=== PATIENT | male | born 1945 | race Caucasian/White ===

== ENCOUNTER → 2019-01-29 | Outpatient (CLI) | payer MEDICARE, OTHER ==
--- NOTE | 2019-01-29 14:28 | Diagnostic Imaging Report ---
INDICATION: Hematospermia and hypertension. FINDINGS: The right testicle measures 3.6 x 2.1 x 2.2 cm and the left testicle measures 4.6 x 1.8 x 2.5 cm. Testes demonstrate fairly homogeneous echotexture. There are small cysts noted along the periphery of the each testicle. Cyst on the right is approximately 9 mm x 8 mm. Cyst on the left is approximately 8 mm x 7 mm. It is uncertain if these represent true testicular cyst versus tunica cysts. There is blood flow to both testes. Note is made of a small left varicocele. No hydrocele is seen. The epididymides are unremarkable. IMPRESSION: 1. 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 No solid testicular mass or vascular compromise is seen. Note is made of a small left varicocele. Dictated by: Dictated on workstation # [id number]
== END ==
LOC: RAD 12:51
PROVIDERS: ATTEND Pediatrics
DX: I10 Essential (primary) hypertension (principal); R36.1 Hematospermia
CPT/HCPCS: 76870

== ENCOUNTER 2019-02-12 09:04 | Emergency (ER) | payer MEDICARE, OTHER ==
[~2019-02-12] VITALS: Ht 172.7 cm; Wt 104.3 kg
[2019-02-12] MEDS ORDERED: NS IV 1000 ML 1,000 ML IV SCH (09:30)
[2019-02-12] MEDS ORDERED: DILTIAZEM INJECTION 125 MG in NS (IVPB) 100 ML IV SCH (09:30)
[2019-02-12 09:31] VITALS: BP_SYST 112; BP_SYST 120; BP_SYST 80; BP_DIAS 47; BP_DIAS 75; BP_DIAS 79
[2019-02-12] MEDS ORDERED: DILTIAZEM 125 MG/25 ML IV (CARDIZEM) IV ONE (09:36)
[2019-02-12 09:38] LABS: BASOPHILS % (AUTO) 1 % (0-10); EOSINOPHILS # (AUTO) 0.1 10^3/uL (0.0-0.3); EOSINOPHILS % (AUTO) 2 % (0-10); HEMATOCRIT 39 % (40-54); LYMPHOCYTES # (AUTO) 1.8 X 10^3 (1.0-4.0); LYMPHOCYTES % (AUTO) 36 % (12-44); MEAN CORPUSCULAR HEMOGLOBIN 30 PG (25-34); MEAN CORPUSCULAR HGB CONC 33 G/DL (32-36); MEAN CORPUSCULAR VOLUME 92 FL (80-99); MEAN PLATELET VOLUME 9.9 FL (7.4-10.4); MONOCYTES # (AUTO) 0.3 X 10^3 (0.0-1.0); MONOCYTES % (AUTO) 6 % (0-12); NEUTROPHILS # (AUTO) 2.7 X 10^3 (1.8-7.8); NEUTROPHILS % (AUTO) 55 % (42-75); PLATELET COUNT 144 10^3/uL (130-400); RED CELL DISTRIBUTION WIDTH 12.4 % (10.0-14.5); WHITE BLOOD COUNT 4.9 10^3/uL (4.3-11.0)
[2019-02-12 09:57] LABS: POTASSIUM 3.8 MMOL/L (3.6-5.0)
[2019-02-12 09:58] LABS: ALBUMIN 3.6 GM/DL (3.2-4.5); BILIRUBIN,TOTAL 1.3 MG/DL (0.1-1.0); CALCIUM 8.8 MG/DL (8.5-10.1); CREATININE SERUM 1.32 MG/DL (0.60-1.30); TOTAL PROTEIN 6.4 GM/DL (6.4-8.2)
--- NOTE | 2019-02-12 09:59 | Diagnostic Imaging Report ---
INDICATION: Dizziness, increased heart rate. COMPARISON: None available. TECHNIQUE: Single frontal radiograph of the chest dated 02/12/2019. FINDINGS: A pacer device is present with a battery pack overlying left chest. The cardiac silhouette is mildly enlarged. No significant pulmonary vascular congestion. The lungs are clear of focal pulmonary opacity. No pleural effusion. No pneumothorax. No acute osseous abnormality. IMPRESSION: Mild cardiomegaly without overt congestive heart failure or additional superimposed acute cardiopulmonary abnormality. Dictated by: Dictated on workstation # [id number]
--- NOTE | 2019-02-12 10:03 | NUR ---
Note pt converted from A Fib RVR to paced rhythm with rate control.
--- NOTE | 2019-02-12 10:14 | ED Chest Pain ---
General Chief Complaint: Cardiac/General Problems Stated Complaint: DIZZY Nursing Triage Note: Pt presents to ED reporting very dizzy this morning since 0700. Pt has a pacemaker and heart hx. Pt reports feeling a fluttering in heart. Hx of A FIb and takes Eliquis. Nursing Sepsis Screen: No Definite Risk Source: patient Exam Limitations: no limitations History of Present Illness Date Seen by Provider: Feb 12, 2019 Time Seen by Provider: 09:30 Initial Comments Patient is a 74-year-old male with history of paroxysmal atrial fibrillation, CAD with recent stent AICD placement at [facility] presents with dizziness and palpitations this morning. Patient reports dizziness or lightheadedness upon standing. Initial EKG shows A. fib with RVR with a rate of 121. Patient denies chest pain, shortness of breath, nausea vomiting or sweats. Denies missed medications. Does report some residual swelling in both legs for the past 2 weeks. He is currently anticoagulated on AHLQUIST. Denies any recent change to his exercise tolerance. No recent illnesses. No other acute symptoms or complaints. Patient lives by himself and is accompanied by his sister at bedside. Timing/Duration: 1-3 hours Severity/Quality: moderate Activities at Onset: none Prior CP/Workup: cardiac cath Associated Symptoms: denies symptoms Allergies and Home Medications Allergies Coded Allergies: hydrocodone (Unverified Adverse Reaction, Intermediate, SOA, wheezing, swelling, 02/12/19) midazolam (Unverified Adverse Reaction, Intermediate, Delirium, Hallucination, 02/12/19) Patient Home Medication List Home Medication List Reviewed: Yes Review of Systems Review of Systems Constitutional: see HPI, dizziness Respiratory: See HPI Cardiovascular: See HPI Gastrointestinal: See HPI Genitourinary: See HPI Musculoskeletal: see HPI Skin: see HPI Psychiatric/Neurological: See HPI Endocrine: See HPI Hematologic/Lymphatic: See HPI Past Bfzbcds-Ysijdc-Pjlfos Hx Patient Social History Alcohol Use: Denies Use Recreational Drug Use: No Smoking Status: Former Smoker Former Smoker, Quit: Oct 16, 2010 Recent Foreign Travel: No Contact w/Someone Who Travel: No Recent Infectious Disease Expo: No Recent Hopitalizations: No Physical Abuse: No Sexual Abuse: No Mistreated: No Fear: No Immunizations Up To Date Date of Pneumonia Vaccine: February 13, 2018 Date of Influenza Vaccine: Jul 16, 2018 Seasonal Allergies Seasonal Allergies: No Past Medical History Surgeries: Yes (Hernia repair ', '; Colonoscopy, PTCA) Coronary Stent, Pacemaker Respiratory: No Cardiac: Yes (Diastolic CHF; chronic, Pacemaker/stent 2018) Atrial Fibrillation, Coronary Artery Disease, Hypertension Neurological: No Genitourinary: Yes Benign Prostatic Hyperpl Gastrointestinal: Yes Gastrointestinal Bleed Musculoskeletal: Yes (Osteoarthritis knee) HEENT: No Cancer: No Psychosocial: No Integumentary: No Blood Disorders: No Physical Exam Vital Signs Vital Signs - First Documented 02/12/19 09:07 Temp 97.4 Pulse 85 Resp 20 B/P (MAP) 128/65 (86) Pulse Ox 97 O2 Delivery Room Air Capillary Refill : Less Than 3 Seconds Height, Weight, BMI Height: 5'8.00" Weight: 230lbs. oz. 104.932060gn; BMI Method:Stated General Appearance: No Apparent Distress, WD/WN HEENT: PERRL/EOMI, TMs Normal, Normal ENT Inspection, Pharynx Normal Neck: Full Range of Motion, Normal Inspection Respiratory: Chest Non Tender, Lungs Clear, Normal Breath Sounds Cardiovascular: Irregularly Irregular Gastrointestinal: Normal Bowel Sounds, Soft Neurologic/Psychiatric: Alert, Oriented x3 Skin: Normal Color, Warm/Dry Focused Exam Sepsis Stage: Ruled Out Progress/Results/Core Measures Results/Orders Lab Results Laboratory Tests Test 02/12/19 09:20 02/12/19 11:10 Range/Units White Blood Count 4.9 4.3-11.0 10^3/uL Red Blood Count 4.29 L 4.35-5.85 10^6/uL Hemoglobin 13.0 L 13.3-17.7 G/DL Hematocrit 39 L 40-54 % Mean Corpuscular Volume 92 80-99 FL Mean Corpuscular Hemoglobin 30 25-34 PG Mean Corpuscular Hemoglobin Concent 33 32-36 G/DL Red Cell Distribution Width 12.4 10.0-14.5 % Platelet Count 144 130-400 10^3/uL Mean Platelet Volume 9.9 7.4-10.4 FL Neutrophils (%) (Auto) 55 42-75 % Lymphocytes (%) (Auto) 36 12-44 % Monocytes (%) (Auto) 6 0-12 % Eosinophils (%) (Auto) 2 0-10 % Basophils (%) (Auto) 1 0-10 % Neutrophils # (Auto) 2.7 1.8-7.8 X 10^3 Lymphocytes # (Auto) 1.8 1.0-4.0 X 10^3 Monocytes # (Auto) 0.3 0.0-1.0 X 10^3 Eosinophils # (Auto) 0.1 0.0-0.3 10^3/uL Basophils # (Auto) 0.0 0.0-0.1 10^3/uL Sodium Level 145 135-145 MMOL/L Potassium Level 3.8 3.6-5.0 MMOL/L Chloride Level 107 98-107 MMOL/L Carbon Dioxide Level 25 21-32 MMOL/L Anion Gap 13 5-14 MMOL/L Blood Urea Nitrogen 12 7-18 MG/DL Creatinine 1.32 H 0.60-1.30 MG/DL Estimat Glomerular Filtration Rate 53 BUN/Creatinine Ratio 9 Glucose Level 185 H 70-105 MG/DL Calcium Level 8.8 8.5-10.1 MG/DL Corrected Calcium 9.1 8.5-10.1 MG/DL Total Bilirubin 1.3 H 0.1-1.0 MG/DL Aspartate Amino Transf (AST/SGOT) 20 5-34 U/L Alanine Aminotransferase (ALT/SGPT) 15 0-55 U/L Alkaline Phosphatase 105 40-136 U/L Troponin T 28 H 24 H <=15 NG/L Pro-B-Type Natriuretic Peptide 1133.0 H <75.0 PG/ML Total Protein 6.4 6.4-8.2 GM/DL Albumin 3.6 3.2-4.5 GM/DL My Orders Orders - ARGENIS MEDRANO DO Cbc With Automated Diff (02/12/19 09:24) Comprehensive Metabolic Panel (02/12/19 09:24) Ekg Tracing (02/12/19 09:24) Chest 1 View Ap/Pa Only (02/12/19 09:24) Troponin T (02/12/19 09:24) Probnp Fs (02/12/19 09:24) Ns (Ivpb) (Sodium C... W/Diltiazem Injec (02/12/19 09:30) Ns Iv 1000 Ml (Sodium Chloride 0.9%) (02/12/19 09:30) Diltiazem Iv For Drip (Cardizem Iv For D (02/12/19 09:36) Furosemide Injection (Lasix Injection) (02/12/19 10:30) Troponin T (02/12/19 10:51) Troponin T (02/12/19 11:33) Medications Given in ED Current Medications Medications Dose Ordered Sig/Frantz Route Start Time Stop Time Status Last Admin Dose Admin Furosemide 40 mg ONCE ONCE IVP 02/12/19 10:30 02/12/19 10:51 DC 02/12/19 11:07 40 MG Vital Signs/I&O 02/12/19 02/12/19 02/12/19 09:07 09:31 09:54 Temp 97.4 Pulse 85 79 139 92 100 Resp 20 18 B/P (MAP) 128/65 (86) 112/79 (90) 104/70 120/75 (90) 80/47 (58) Pulse Ox 97 93 O2 Delivery Room Air Blood Pressure Mean: 81 Initial ECG Rhythm: A Fib/Flutter EKG : ECG Impression: Atrial Fibrillation w/RVR Departure Communication (Admissions) Patient converted from A. fib with RVR to atrial paced rhythm with addition of IV fluids and Cardizem drip. Patient states he feels much better. Denies chest pain. Repeat EKG, does not show acute ST elevation. T-wave inversions in lateral leads of unknown significance. Initial troponin is borderline. Repeat and does not show increased elevation. Cardizem discontinued. Vital signs remain stable. Patient walks a steady gait does not feel symptomatic. Will discharge for the ED with instructions to contact [facility] for further recommendations and follow-up. Return precautions reviewed. Impression Primary Impression: Atrial fibrillation with RVR Additional Impression: Orthostatic hypotension Disposition: 01 HOME, SELF-CARE Condition: Stable Departure-Patient Inst. Referrals: ANALI OLIVAS MD (PCP/Family) Primary Care Physician Patient Instructions: Orthostatic Hypotension (DC), Atrial Fibrillation Add. Discharge Instructions: Please your continue home medications, contact your [facility] office and notified them of the emergency department visit. Confirm your next cardiology appointment date and determine whether you should be seen before then. Return to the ED if new or worsening symptoms. All discharge instructions reviewed with patient and/or family. Voiced understanding. ARGENIS MEDRANO DO Feb 12, 2019 10:13
[2019-02-12] MEDS ORDERED: FUROSEMIDE 40 MG/4 ML INJ (LASIX) IVP ONE (10:30)
[2019-02-12 11:51] VITALS: BP_SYST 103; BP_SYST 117; BP_SYST 136; BP_DIAS 61; BP_DIAS 75; BP_DIAS 76
--- NOTE | 2019-02-12 12:00 | NUR ---
Walked in ED 100 ft after the orthostatics completed. HR up to 96 appearing paced then at rest resumed rate to 68 paced. Post ambulation NIBP 140/74.
[2019-02-12] MEDS ORDERED: TERA5CAP3 (12:07)
[2019-02-12] MEDS ORDERED: APIX5TAB (12:07)
[2019-02-12] MEDS ORDERED: METO-333 (12:07)
[2019-02-12] MEDS ORDERED: FINA5TAB6 (12:07)
[2019-02-12] MEDS ORDERED: LISI-556 (12:07)
[2019-02-12] MEDS ORDERED: PANT40TA3 (12:07)
[2019-02-12] MEDS ORDERED: ATOR80TA76 (12:07)
[2019-02-12] MEDS ORDERED: CLOP75TA28 (12:07)
[2019-02-12 12:20] VITALS: BP 140/80
--- NOTE | 2019-02-12 12:20 | NUR ---
Pt discharged to home after improvement of heart rate controlled, no dizziness reported, and pt ambulation without sx. Discharge NIBP 140/80, pulse 68 paced rhythm.
== END 2019-02-12 12:20 | disposition home or self-care (01) ==
LOC: EDUNIT# 09:04 → ER FS 09:05
DX: I48.91 Unspecified atrial fibrillation (principal); I95.1 Orthostatic hypotension; I10 Essential (primary) hypertension; I25.10 Atherosclerotic heart disease of native coronary artery without angina pectoris; Z87.891 Personal history of nicotine dependence; Z87.448 Personal history of other diseases of urinary system; Z87.19 Personal history of other diseases of the digestive system; Z95.810 Presence of automatic (implantable) cardiac defibrillator; Z88.5 Allergy status to narcotic agent; Z88.8 Allergy status to other drugs, medicaments and biological substances; Z95.5 Presence of coronary angioplasty implant and graft; Z98.890 Other specified postprocedural states
CPT/HCPCS: 36415; 71045; 80053; 83880; 84484; 85025; 96361; 96365; 96366; 96375

== ENCOUNTER 2019-02-22 18:19 | Emergency (ER) | payer MEDICARE, OTHER ==
[~2019-02-22] VITALS: Ht 172.7 cm; Wt 104.3 kg
[~2019-02-22 18:19] MED LIST: APIX5TAB; ATOR80TA76; CLOP75TA28; FINA5TAB6; LISI-556; METO-333; PANT40TA3; TERA5CAP3
[2019-02-22 18:51] LABS: BASOPHILS % (AUTO) 0 % (0-10); EOSINOPHILS % (AUTO) 2 % (0-10); HEMATOCRIT 42 % (40-54); HEMOGLOBIN 14.2 G/DL (13.3-17.7); LYMPHOCYTES % (AUTO) 37 % (12-44); MEAN CORPUSCULAR HEMOGLOBIN 31 PG (25-34); MEAN CORPUSCULAR HGB CONC 34 G/DL (32-36); MEAN CORPUSCULAR VOLUME 91 FL (80-99); MEAN PLATELET VOLUME 9.9 FL (7.4-10.4); MONOCYTES % (AUTO) 8 % (0-12); NEUTROPHILS % (AUTO) 53 % (42-75); PLATELET COUNT 160 10^3/uL (130-400); RED CELL DISTRIBUTION WIDTH 12.3 % (10.0-14.5); WHITE BLOOD COUNT 6.8 10^3/uL (4.3-11.0)
[2019-02-22 18:52] LABS: EOSINOPHILS # (AUTO) 0.1 10^3/uL (0.0-0.3); LYMPHOCYTES # (AUTO) 2.5 X 10^3 (1.0-4.0); MONOCYTES # (AUTO) 0.5 X 10^3 (0.0-1.0); NEUTROPHILS # (AUTO) 3.6 X 10^3 (1.8-7.8)
--- NOTE | 2019-02-22 18:58 | Diagnostic Imaging Report ---
INDICATION: Pacemaker, dizziness. COMPARISON: 02/12/2019 FINDINGS: Single view of the chest demonstrates stable cardiac enlargement. Lungs are clear. There is no pneumothorax or effusion. Osseous structures are stable. Pacemaker is unchanged. IMPRESSION: Stable cardiac enlargement without pulmonary edema or acute infiltrate. Dictated by: Dictated on workstation # [id number]
[2019-02-22 19:17] LABS: CREATININE SERUM 2.09 MG/DL (0.60-1.30); POTASSIUM 4.3 MMOL/L (3.6-5.0)
[2019-02-22 19:18] LABS: ALBUMIN 4.5 GM/DL (3.2-4.5); BILIRUBIN,TOTAL 1.4 MG/DL (0.1-1.0); TOTAL PROTEIN 7.2 GM/DL (6.4-8.2)
[2019-02-22] MEDS ORDERED: NS IV 1000 ML 500 ML IV SCH (20:00)
--- NOTE | 2019-02-22 20:04 | ED Syncope ---
General Chief Complaint: Dizziness/Syncope Stated Complaint: DIZZY, LIGHT HEADED Nursing Triage Note: Has been lightheaded for 30 minutes, has been working outside today. Also had a dull ache in chest that is gone now. Was recently in ED for afib and had a AL last October. Source of Information: Patient History of Present Illness Date Seen by Provider: February 22, 2019 Time Seen by Provider: 19:00 Initial Comments Patient is a 74-year-old male history CAD, stent placement 3 months ago, intermittent atrial fibrillation and pacemaker placement placed 2 months ago presents with dizziness after upon standing lost less than 5 minutes starting 30 minutes prior to arrival. Patient states he spent part of the evening on his riding lawnmower mowing his lawn. He then went indoors cleaned up, sat down and felt dizzy upon standing. Dizziness is positional and resolved with rest. Denies chest pain palpitations, shortness of breath. Dizziness has since improved. Patient's had prior to dizzy episodes and was seen in the emergency department approximately 10 days ago for the same by this provider. No other acute symptoms or complaints. Precipitating Factors: Standing Loss of Consciousness: No Loss of Consciousness Current Symptoms: Back to Normal Allergies and Home Medications Allergies Coded Allergies: hydrocodone (Unverified Adverse Reaction, Intermediate, SOA, wheezing, swelling, 02/12/19) midazolam (Unverified Adverse Reaction, Intermediate, Delirium, Hallucination, 02/12/19) Patient Home Medication List Home Medication List Reviewed: Yes Review of Systems Constitutional: no symptoms reported, see HPI, dizziness EENTM: see HPI, no symptoms reported Respiratory: no symptoms reported, see HPI Cardiovascular: no symptoms reported, see HPI Genitourinary: no symptoms reported, see HPI Musculoskeletal: no symptoms reported, see HPI Skin: no symptoms reported, see HPI Psychiatric/Neurological: Anxiety Past Ymccteq-Lwfmfo-Cggljd Hx Past Med/Social Hx: Reviewed Nursing Past Med/Soc Hx Patient Social History Alcohol Use: Denies Use Recreational Drug Use: No Smoking Status: Former Smoker Former Smoker, Quit: Oct 16, 2010 Recent Foreign Travel: No Contact w/Someone Who Travel: No Recent Infectious Disease Expo: No Recent Hopitalizations: No Physical Abuse: No Sexual Abuse: No Mistreated: No Fear: No Immunizations Up To Date Date of Pneumonia Vaccine: February 13, 2018 Date of Influenza Vaccine: Jul 16, 2018 Seasonal Allergies Seasonal Allergies: No Past Medical History Surgeries: Yes (Hernia repair , ; Colonoscopy, PTCA) Cardiac, Coronary Stent, Pacemaker Respiratory: No Cardiac: Yes (Diastolic CHF; chronic, Pacemaker/stent 2018) Atrial Fibrillation, Coronary Artery Disease, Heart Attack, Hypertension Neurological: No Genitourinary: Yes Benign Prostatic Hyperpl Gastrointestinal: Yes Abdominal Hernia, Gastrointestinal Bleed Musculoskeletal: Yes (Osteoarthritis knee) HEENT: No Cancer: No Psychosocial: No Integumentary: No Blood Disorders: No Physical Exam Vital Signs Vital Signs - First Documented 02/22/19 18:31 Temp 96.9 Pulse 76 Resp 22 B/P (MAP) 129/76 (93) Pulse Ox 76 Capillary Refill : Less Than 3 Seconds Height, Weight, BMI Height: 5'8.00" Weight: 230lbs. oz. 104.959126wj; BMI Method:Stated General Appearance: No Apparent Distress, WD/WN HEENT: PERRL/EOMI, TMs Normal Neck: Full Range of Motion, Normal Inspection Cardiovascular: Regular Rate, Rhythm, No Edema Respiratory: Chest Non Tender, Lungs Clear Extremities: Normal Inspection Neurologic/Psychiatric: Alert, Oriented x3, No Motor/Sensory Deficits, Normal Mood/Affect Cranial Nerves: PERRL Motor/Sensory: No Motor Deficit, No Sensory Deficit Skin: Normal Color, Warm/Dry Focused Exam Sepsis Stage: Ruled Out Progress/Results/Core Measures Results/Orders Lab Results Laboratory Tests Test 02/22/19 18:42 Range/Units White Blood Count 6.8 4.3-11.0 10^3/uL Red Blood Count 4.60 4.35-5.85 10^6/uL Hemoglobin 14.2 13.3-17.7 G/DL Hematocrit 42 40-54 % Mean Corpuscular Volume 91 80-99 FL Mean Corpuscular Hemoglobin 31 25-34 PG Mean Corpuscular Hemoglobin Concent 34 32-36 G/DL Red Cell Distribution Width 12.3 10.0-14.5 % Platelet Count 160 130-400 10^3/uL Mean Platelet Volume 9.9 7.4-10.4 FL Neutrophils (%) (Auto) 53 42-75 % Lymphocytes (%) (Auto) 37 12-44 % Monocytes (%) (Auto) 8 0-12 % Eosinophils (%) (Auto) 2 0-10 % Basophils (%) (Auto) 0 0-10 % Neutrophils # (Auto) 3.6 1.8-7.8 X 10^3 Lymphocytes # (Auto) 2.5 1.0-4.0 X 10^3 Monocytes # (Auto) 0.5 0.0-1.0 X 10^3 Eosinophils # (Auto) 0.1 0.0-0.3 10^3/uL Basophils # (Auto) 0.0 0.0-0.1 10^3/uL Sodium Level 142 135-145 MMOL/L Potassium Level 4.3 3.6-5.0 MMOL/L Chloride Level 103 98-107 MMOL/L Carbon Dioxide Level 26 21-32 MMOL/L Anion Gap 13 5-14 MMOL/L Blood Urea Nitrogen 25 H 7-18 MG/DL Creatinine 2.09 H 0.60-1.30 MG/DL Estimat Glomerular Filtration Rate 31 BUN/Creatinine Ratio 12 Glucose Level 120 H 70-105 MG/DL Calcium Level 9.0 8.5-10.1 MG/DL Corrected Calcium 8.6 8.5-10.1 MG/DL Total Bilirubin 1.4 H 0.1-1.0 MG/DL Aspartate Amino Transf (AST/SGOT) 20 5-34 U/L Alanine Aminotransferase (ALT/SGPT) 12 0-55 U/L Alkaline Phosphatase 122 40-136 U/L Troponin T 24 H <=15 NG/L Pro-B-Type Natriuretic Peptide 147.7 H <75.0 PG/ML Total Protein 7.2 6.4-8.2 GM/DL Albumin 4.5 3.2-4.5 GM/DL My Orders Orders - ARGENIS MEDRANO DO Cbc With Automated Diff (02/22/19 18:39) Comprehensive Metabolic Panel (02/22/19 18:39) Troponin T (02/22/19 18:39) Chest 1 View Ap/Pa Only (02/22/19 18:39) Ekg Tracing (02/22/19 18:39) Probnp Fs (02/22/19 18:39) Orthostatic Vital Signs (12-19 (02/22/19 19:13) Ns Iv 1000 Ml (Sodium Chloride 0.9%) (02/22/19 20:00) Vital Signs/I&O 02/22/19 02/22/19 18:31 19:19 Temp 96.9 Pulse 76 74 77 89 Resp 22 B/P (MAP) 129/76 (93) 121/68 113/71 107/63 Pulse Ox 76 Blood Pressure Mean: 93 Departure Communication (Admissions) EKG: Reviewed, sinus rhythm, rate 79, no acute ST-T wave changes. Orthostatic dizziness resolved prior to arrival. No chest pain palpitations shortness of breath. Vital signs stable emergency department. Patient does have renal insufficiency. Troponin is stable, no evidence of congestive heart failure on chest x-ray. IV fluids given. Patient's monitored and remains asymptomatic. Recommend continue current medications follow-up with PCP and cardiology. Return precautions reviewed. Patient verbalizes understanding and agreement discharge instructions prior to departure. Impression Primary Impression: Orthostatic dizziness Disposition: 01 HOME, SELF-CARE Condition: Improved Departure-Patient Inst. Referrals: ANALI OLIVAS MD (PCP/Family) Primary Care Physician Patient Instructions: Orthostatic Hypotension (DC) Add. Discharge Instructions: Please increase fluid consumption over the next 2 days and continue home medications. Hold blood pressure medication if dizziness returns until he can follow up with her primary care physician early next week. Return to the ED if new or worsening symptoms. All discharge instructions reviewed with patient and/or family. Voiced understanding. ARGENIS MEDRANO DO February 22, 2019 20:04
[2019-02-22 20:30] VITALS: BP 143/74
== END 2019-02-22 20:30 | disposition home or self-care (01) ==
LOC: EDUNIT# 18:19 → ER FS 18:20
DX: R42 Dizziness and giddiness (principal); I25.10 Atherosclerotic heart disease of native coronary artery without angina pectoris; I48.91 Unspecified atrial fibrillation; I25.2 Old myocardial infarction; I11.0 Hypertensive heart disease with heart failure; I50.30 Unspecified diastolic (congestive) heart failure; Z87.19 Personal history of other diseases of the digestive system; Z87.448 Personal history of other diseases of urinary system; Z95.0 Presence of cardiac pacemaker; Z88.5 Allergy status to narcotic agent; Z88.8 Allergy status to other drugs, medicaments and biological substances; Z95.5 Presence of coronary angioplasty implant and graft; Z87.891 Personal history of nicotine dependence; Z98.890 Other specified postprocedural states
CPT/HCPCS: 36415; 71045; 80053; 83880; 84484; 85025; 93005

== ENCOUNTER → 2019-10-24 | Outpatient (CLI) | payer MEDICARE, OTHER ==
--- NOTE | 2019-10-24 10:50 | Diagnostic Imaging Report ---
INDICATION: Chronic left knee pain. TIME OF EXAM: 10:11 AM 3 views of the left knee were obtained. FINDINGS: Alignment is normal. There is medial and patellofemoral compartment degenerative change with joint space narrowing and marginal spurring. Lateral compartment is unremarkable. The articular surfaces are smooth. No fracture, dislocation or effusion is seen. IMPRESSION: Degenerative changes. No acute bony abnormality is detected. Dictated by: Dictated on workstation # [id number]
== END ==
LOC: RAD FS 10:07
PROVIDERS: ATTEND Nurse Practitioner
DX: M17.12 Unilateral primary osteoarthritis, left knee (principal)
CPT/HCPCS: 73562

== ENCOUNTER 2020-02-01 23:41 | Emergency (ER) | payer MEDICARE, OTHER ==
[~2020-02-01] VITALS: Ht 172.7 cm; Wt 102.2 kg
--- OUTSIDE RECORDS SUMMARY | 2020-02-01 23:47 | XMS REPORT | Continuity of Care Document ---
Author Organization Unknown Address Unknown Phone Unavailable Allergies Active Description Code Type Severity Reaction Onset Reported/Identified Relationship to Patient Clinical Status Yes hydrocodone [id number] Drug Aller gy Moderate SOA, wheezing, 02/12/2019 Yes midazolam [id number] Drug Allergy Moderate Delirium, Hallu 02/12/2019 Medications There is no data. Problems Date Dx Coded Attending Type Code Diagnosis Diagnosed By 01/29/2019 ANALI OLIVAS MD, Ot I10 ESSENTIAL (PRIMARY) HYPERTENSION 01/29/2019 ANALI OLIVAS MD, Ot R36.1 HEMATOSPERMIA 02/12/2019 ANALI OLIVAS MD, Ot I10 ESSENTIAL (PRIMARY) HYPERTENSION 02/12/2019 ANALI OLIVAS MD, Ot R36.1 HEMATOSPERMIA 02/12/2019 ARGENIS MEDRANO DO, Ot I10 ESSENTIAL (PRIMARY) HYPERTENSION 02/12/2019 ARGENIS MEDRANO DO, Ot I25.10 ATHSCL HEART DISEASE OF [place] CORONARY 02/12/2019 ARGENIS MEDRANO DO Ot I48.91 UNSPECIFIED ATRIAL FIBRILLATION 02/12/2019 ARGENIS MEDRANO DO Ot I95.1 ORTHOSTATIC HYPOTENSION 02/12/2019 ARGENIS MEDRANO DO Ot R42 DIZZINESS AND GIDDINESS 02/12/2019 ARGENIS MEDRANO DO Ot Z87.19 PERSONAL HISTORY OF OTHER DISEASES OF TH 02/12/2019 ARGENIS MEDRANO DO, Ot Z87.448 PERSONAL HISTORY OF OTHER DISEASES OF UR 02/12/2019 ARGENIS MEDRANO DO Ot Z87.891 PERSONAL HISTORY OF NICOTINE DEPENDENCE 02/12/2019 ARGENIS MEDRANO DO Ot Z88.5 ALLERGY STATUS TO NARCOTIC AGENT STATUS 02/12/2019 ARGENIS MEDRANO DO Ot Z88.8 ALLERGY STATUS TO OTH DRUG/MEDS/BIOL SUB 02/12/2019 ARGENIS MEDRANO DO Ot Z95.5 PRESENCE OF CORONARY ANGIOPLASTY IMPLANT 02/12/2019 ARGENIS MEDRANO DO Ot Z95.810 PRESENCE OF AUTOMATIC (IMPLANTABLE) CARD 02/12/2019 ARGENIS MEDRANO DO Ot Z98.890 OTHER SPECIFIED POSTPROCEDURAL STATES 02/14/2019 MEDRANO DO, ARGENIS Ot I10 ESSENTIAL (PRIMARY) HYPERTENSION 02/14/2019 SUMPTER DO, ARGENIS Ot I25.10 ATHSCL HEART DISEASE OF [place] CORONARY 02/14/2019 SUMPTER DO, ARGENIS Ot I48.91 UNSPECIFIED ATRIAL FIBRILLATION 02/14/2019 SUMPTER DO, ARGENIS Ot I95.1 ORTHOSTATIC HYPOTENSION 02/14/2019 SUMPTER DO, ARGENIS Ot R42 DIZZINESS AND GIDDINESS 02/14/2019 SUMPTER DO, ARGENIS Ot Z87.19 PERSONAL HISTORY OF OTHER DISEASES OF TH 02/14/2019 SUMPTER DO, ARGENIS Ot Z87.448 PERSONAL HISTORY OF OTHER DISEASES OF UR 02/14/2019 SUMPTER DO, ARGENIS Ot Z87.891 PERSONAL HISTORY OF NICOTINE DEPENDENCE 02/14/2019 SUMPTER DO, ARGENIS Ot Z88.5 ALLERGY STATUS TO NARCOTIC AGENT STATUS 02/14/2019 SUMPTER DO, ARGENIS Ot Z88.8 ALLERGY STATUS TO OTH DRUG/MEDS/BIOL SUB 02/14/2019 SUMPTER DO, ARGENIS Ot Z95.5 PRESENCE OF CORONARY ANGIOPLASTY IMPLANT 02/14/2019 SUMPTER DO, ARGENIS Ot Z95.810 PRESENCE OF AUTOMATIC (IMPLANTABLE) CARD 02/14/2019 SUMPTER DO, ARGENIS Ot Z98.890 OTHER SPECIFIED POSTPROCEDURAL STATES 02/19/2019 DESIY VARGAS, ANALI [place] Ot I10 ESSENTIAL (PRIMARY) HYPERTENSION 02/19/2019 DEISY VARGAS, ANALI [place] Ot R36.1 HEMATOSPERMIA 02/22/2019 SUMPTER DO, ARGENIS Ot I11.0 HYPERTENSIVE HEART DISEASE WITH HEART FA 02/22/2019 SUMPTER DO, ARGENIS Ot I25.10 ATHSCL HEART DISEASE OF [place] CORONARY 02/22/2019 SUMPTER DO, ARGENIS Ot I25.2 OLD MYOCARDIAL INFARCTION 02/22/2019 SUMPTER DO, ARGENIS Ot I48.91 UNSPECIFIED ATRIAL FIBRILLATION 02/22/2019 SUMPTER DO, ARGENIS Ot I50.30 UNSPECIFIED DIASTOLIC (CONGESTIVE) HEART 02/22/2019 SUMPTER DO, ARGENIS Ot R42 DIZZINESS AND GIDDINESS 02/22/2019 SUMPTER DO, ARGENIS Ot Z87.19 PERSONAL HISTORY OF OTHER DISEASES OF TH 02/22/2019 SUMPTER DO, ARGENIS Ot Z87.448 PERSONAL HISTORY OF OTHER DISEASES OF UR 02/22/2019 SUMPTER DO, ARGENIS Ot Z87.891 PERSONAL HISTORY OF NICOTINE DEPENDENCE 02/22/2019 SUMPTER DO, ARGENIS Ot Z88.5 ALLERGY STATUS TO NARCOTIC AGENT STATUS 02/22/2019 SUMPTER DO, ARGENIS Ot Z88.8 ALLERGY STATUS TO OTH DRUG/MEDS/BIOL SUB 02/22/2019 SUMPTER DO, ARGENIS Ot Z95.0 PRESENCE OF CARDIAC PACEMAKER 02/22/2019 [facility], ARGENIS Ot Z95.5 PRESENCE OF CORONARY ANGIOPLASTY IMPLANT 02/22/2019 [facility], ARGENIS Ot Z98.890 OTHER SPECIFIED POSTPROCEDURAL STATES 02/26/2019 [facility], ARGENIS Ot I11.0 HYPERTENSIVE HEART DISEASE WITH HEART FA 02/26/2019 [facility], ARGENIS Ot I25.10 ATHSCL HEART DISEASE OF [place] CORONARY 02/26/2019 SUMPTER DO, ARGENIS Ot I25.2 OLD MYOCARDIAL INFARCTION 02/26/2019 [facility], ARGENIS Ot I48.91 UNSPECIFIED ATRIAL FIBRILLATION 02/26/2019 [facility], ARGENIS Ot I50.30 UNSPECIFIED DIASTOLIC (CONGESTIVE) HEART 02/26/2019 [facility], ARGENIS Ot R42 DIZZINESS AND GIDDINESS 02/26/2019 [facility], ARGENIS Ot Z87.19 PERSONAL HISTORY OF OTHER DISEASES OF TH 02/26/2019 [facility], ARGENIS Ot Z87.448 PERSONAL HISTORY OF OTHER DISEASES OF UR 02/26/2019 [facility], ARGENIS Ot Z87.891 PERSONAL HISTORY OF NICOTINE DEPENDENCE 02/26/2019 [facility], ARGENIS Ot Z88.5 ALLERGY STATUS TO NARCOTIC AGENT STATUS 02/26/2019 [facility], ARGENIS Ot Z88.8 ALLERGY STATUS TO OTH DRUG/MEDS/BIOL SUB 02/26/2019 [facility], ARGENIS Ot Z95.0 PRESENCE OF CARDIAC PACEMAKER 02/26/2019 [facility], ARGENIS Ot Z95.5 PRESENCE OF CORONARY ANGIOPLASTY IMPLANT 02/26/2019 [facility], ARGENIS Ot Z98.890 OTHER SPECIFIED POSTPROCEDURAL STATES 11/11/2019 MARY KATE CASTRO Ot M17.12 UNILATERAL PRIMARY OSTEOARTHRITIS, LEFT Procedures There is no data. Results Test Result Range Complete blood count (CBC) with automate d white blood cell (WBC) differential - 02/12/19 09:20 Blood leukocytes automated count (number/volume) 4.9 10*3/uL 4.3-11.0 Blood erythrocytes automated count (number/volume) 4.29 10*6/uL 4.35-5.85 Venous blood hemoglobin measurement (mass/volume) 13.0 g/dL 13.3-17.7 Blood hematocrit (volume fraction) 39 % 40-54 Automated erythrocyte mean corpuscular volume 92 [ foz_us] 80-99 Automated erythrocyte mean corpuscular h emoglobin (mass per erythrocyte) 30 pg 25-34 Automated erythrocyte mean corpuscular h emoglobin concentration measurement (mass/volume) 33 g/dL 32-36 Automated erythrocyte distribution width ratio 12. 4 % 10.0- 14.5 Automated blood platelet count (count/volume) 144 10*3/uL 130-400 Automated blood platelet mean volume measurement 9.9 [foz_us] 7.4-10.4 Automated blood neutrophils/100 leukocytes 55 % 42-75 Automated blood lymphocytes/100 leukocytes 36 % 12-44 Blood monocytes/100 leukocytes 6 % 0-12 Automated blood eosinophils/100 leukocytes 2 % 0-10 Automated blood basophils/100 leukocytes 1 % 0-10 Blood neutrophils automated count (number/volume) 2.7 10*3 1.8-7.8 Blood lymphocytes automated count (number/volume) 1.8 10*3 1.0-4.0 Blood monocytes automated count (number/volume) 0. 3 10*3 0.0-1.0 Automated eosinophil count 0.1 10*3/uL 0 .0-0.3 Automated blood basophil count (count/volume) 0.0 10*3/uL 0.0-0.1 Comprehensive metabolic panel - 02/12/19 09:20 Serum or plasma sodium measurement (moles/volume) 145 mmol/L 135-145 Serum or plasma potassium measurement (moles/volume) 3.8 mmol/L 3.6-5.0 Serum or plasma chloride measurement (moles/volume) 107 mmol/L 98-107 Carbon dioxide 25 mmol/L 21-32 Serum or plasma anion gap determination (moles/volume) 13 mmol/L 5-14 Serum or plasma urea nitrogen measurement (mass/volume ) 12 mg/dL 7-18 Serum or plasma creatinine measurement (mass/volume) 1.32 mg/dL 0.60-1.30 Serum or plasma urea nitrogen/creatinine mass ratio 9 NRG Serum or plasma creatinine measurement w ith calculation of estimated glomerular filtration rate 53 NRG Serum or plasma glucose measurement (mass/volume) 185 mg/dL 70-105 Serum or plasma calcium measurement (mass/volume) 8.8 mg/dL 8.5-10.1 Serum or plasma total bilirubin measurement (mass/volu me) 1.3 mg/dL 0.1-1.0 Serum or plasma alkaline phosphatase levy surement (enzymatic activity/volume) 105 U/L 40-136 Serum or plasma aspartate aminotransfera se measurement (enzymatic activity/volume) 20 U/L 5-34 Serum or plasma alanine aminotransferase measurement (enzymatic activity/volume) 15 U/L 0-55 Serum or plasma protein measurement (mass/volume) 6.4 g/dL 6.4-8.2 Serum or plasma albumin measurement (mass/volume) 3.6 g/dL 3.2-4.5 CALCIUM CORRECTED 9.1 mg/dL 8.5-10.1 TROPONIN T - 02/12/19 09:20 TROPONIN T 28 % <=15 PROBNP FS - 02/12/19 09:20 PROBNP FS 1133.0 pg/mL <75.0 TROPONIN T - 02/12/19 11:10 TROPONIN T 24 % <=15 Complete blood count (CBC) with automate d white blood cell (WBC) differential - 02/22/19 18:42 Blood leukocytes automated count (number/volume) 6.8 10*3/uL 4.3-11.0 Blood erythrocytes automated count (number/volume) 4.60 10*6/uL 4.35-5.85 Venous blood hemoglobin measurement (mass/volume) 14.2 g/dL 13.3-17.7 Blood hematocrit (volume fraction) 42 % 40-54 Automated erythrocyte mean corpuscular volume 91 [ foz_us] 80-99 Automated erythrocyte mean corpuscular h emoglobin (mass per erythrocyte) 31 pg 25-34 Automated erythrocyte mean corpuscular h emoglobin concentration measurement (mass/volume) 34 g/dL 32-36 Automated erythrocyte distribution width ratio 12. 3 % 10.0- 14.5 Automated blood platelet count (count/volume) 160 10*3/uL 130-400 Automated blood platelet mean volume measurement 9.9 [foz_us] 7.4-10.4 Automated blood neutrophils/100 leukocytes 53 % 42-75 Automated blood lymphocytes/100 leukocytes 37 % 12-44 Blood monocytes/100 leukocytes 8 % 0-12 Automated blood eosinophils/100 leukocytes 2 % 0-10 Automated blood basophils/100 leukocytes 0 % 0-10 Blood neutrophils automated count (number/volume) 3.6 10*3 1.8-7.8 Blood lymphocytes automated count (number/volume) 2.5 10*3 1.0-4.0 Blood monocytes automated count (number/volume) 0. 5 10*3 0.0-1.0 Automated eosinophil count 0.1 10*3/uL 0 .0-0.3 Automated blood basophil count (count/volume) 0.0 10*3/uL 0.0-0.1 Comprehensive metabolic panel - 02/22/19 18:42 Serum or plasma sodium measurement (moles/volume) 142 mmol/L 135-145 Serum or plasma potassium measurement (moles/volume) 4.3 mmol/L 3.6-5.0 Serum or plasma chloride measurement (moles/volume) 103 mmol/L 98-107 Carbon dioxide 26 mmol/L 21-32 Serum or plasma anion gap determination (moles/volume) 13 mmol/L 5-14 Serum or plasma urea nitrogen measurement (mass/volume ) 25 mg/dL 7-18 Serum or plasma creatinine measurement (mass/volume) 2.09 mg/dL 0.60-1.30 Serum or plasma urea nitrogen/creatinine mass ratio 12 NRG Serum or plasma creatinine measurement w ith calculation of estimated glomerular filtration rate 31 NRG Serum or plasma glucose measurement (mass/volume) 120 mg/dL 70-105 Serum or plasma calcium measurement (mass/volume) 9.0 mg/dL 8.5-10.1 Serum or plasma total bilirubin measurement (mass/volu me) 1.4 mg/dL 0.1-1.0 Serum or plasma alkaline phosphatase levy surement (enzymatic activity/volume) 122 U/L 40-136 Serum or plasma aspartate aminotransfera se measurement (enzymatic activity/volume) 20 U/L 5-34 Serum or plasma alanine aminotransferase measurement (enzymatic activity/volume) 12 U/L 0-55 Serum or plasma protein measurement (mass/volume) 7.2 g/dL 6.4-8.2 Serum or plasma albumin measurement (mass/volume) 4.5 g/dL 3.2-4.5 CALCIUM CORRECTED 8.6 mg/dL 8.5-10.1 TROPONIN T - 02/22/19 18:42 TROPONIN T 24 % <=15 PROBNP FS - 02/22/19 18:42 PROBNP FS 147.7 pg/mL <75.0 Encounters ACCT No. Visit Date/Time Discharge Status Pt. Type Provider Facility Loc./Unit Complaint [id number] 10/24/2019 10:07:00 23:59:59 CLS Outpatient MARY KATE CASTRO [facility] RAD FS M25.562 [id number] 02/22/2019 18:20:00 20:30:00 DIS Emergency MEDRANO ARGENIS RENDON [facility] ER FS DIZZY, LIGHT HEADED [id number] 02/12/2019 09:05:00 019 12:20:00 DIS Emergency MEDRANO ARGENIS RENDON [facility] ER FS DIZZY [id number] 01/29/2019 12:51:00 23:59:59 CLS Outpatient DEISY VARGAS, ANALI garcía [facility] RAD ESSENTIAL HYPERTENSION, HEMATOSPERMIA
[2020-02-02 00:14] LABS: BASOPHILS % (AUTO) 1 % (0-10); EOSINOPHILS # (AUTO) 0.1 10^3/uL (0.0-0.3); EOSINOPHILS % (AUTO) 2 % (0-10); HEMATOCRIT 38 % (40-54); HEMOGLOBIN 12.8 G/DL (13.3-17.7); LYMPHOCYTES # (AUTO) 2.8 X 10^3 (1.0-4.0); LYMPHOCYTES % (AUTO) 45 % (12-44); MEAN CORPUSCULAR HEMOGLOBIN 32 PG (25-34); MEAN CORPUSCULAR HGB CONC 34 G/DL (32-36); MEAN CORPUSCULAR VOLUME 93 FL (80-99); MEAN PLATELET VOLUME 9.4 FL (7.4-10.4); MONOCYTES # (AUTO) 0.6 X 10^3 (0.0-1.0); MONOCYTES % (AUTO) 10 % (0-12); NEUTROPHILS # (AUTO) 2.7 X 10^3 (1.8-7.8); NEUTROPHILS % (AUTO) 43 % (42-75); PLATELET COUNT 161 10^3/uL (130-400); RED CELL DISTRIBUTION WIDTH 12.3 % (10.0-14.5); WHITE BLOOD COUNT 6.2 10^3/uL (4.3-11.0)
[2020-02-02] MEDS ORDERED: ASPIRIN 81 MG CHEW (CHILDREN'S ASA) PO ONE (00:15)
[2020-02-02] MEDS ORDERED: NITROGLYCERIN 0.4 MG SL TABS BTL 25'S SL PRN (00:15)
--- NOTE | 2020-02-02 00:15 | ED Chest Pain ---
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 Hx of [place] and stents. Cardio @ [facility] , Dr Anali Hsu. Pt states that he had similar (chest pressure and back pain) w previous [place]. Stopped Eliquis today in preparation for a heart cath scheduled 02 February @ [facility]. Due to abnormalities on recent Echo-cardiogram and to evaluate his pacemaker function. Denies recent illness, fever, cough or soa. No RF's for Covid-19. Allergies and Home Medications Allergies Coded Allergies: hydrocodone (Unverified Adverse Reaction, Intermediate, SOA, wheezing, swelling, 02/12/19) midazolam (Unverified Adverse Reaction, Intermediate, Delirium, Hallucination, 02/12/19) Patient Home Medication List Home Medication List Reviewed: Yes Review of Systems Review of Systems Constitutional: see HPI; No dizziness, No fever, No malaise, No weakness Respiratory: Denies Cough, Denies Shortness of Air Cardiovascular: Chest Pain (pressure); Denies Edema, Denies Irregular Heart Rate, Denies Lightheadedness Musculoskeletal: back pain; No joint pain; muscle pain; No muscle stiffness, No muscle cramps, No neck pain Skin: No change in color, No lesions, No rash Past Qwwqgjk-Zkkkwa-Wukpjn Hx Past Med/Social Hx: Reviewed Nursing Past Med/Soc Hx Patient Social History Former Smoker, Quit: Oct 16, 2010 Recent Foreign Travel: No Contact w/Someone Who Travel: No Recent Hopitalizations: No Immunizations Up To Date Date of Pneumonia Vaccine: February 13, 2018 Date of Influenza Vaccine: Jul 16, 2018 Seasonal Allergies Seasonal Allergies: No Past Medical History Surgeries: Yes (Hernia repair , ; Colonoscopy, PTCA) Cardiac, Coronary Stent, Pacemaker Respiratory: No Cardiac: Yes (Diastolic CHF; chronic, Pacemaker/stent 2018) Atrial Fibrillation, Coronary Artery Disease, Heart Attack, Hypertension Neurological: No Genitourinary: Yes Benign Prostatic Hyperpl Gastrointestinal: Yes Abdominal Hernia, Gastrointestinal Bleed Musculoskeletal: Yes (Osteoarthritis knee) HEENT: No Cancer: No Psychosocial: No Integumentary: No Blood Disorders: No Physical Exam Vital Signs Vital Signs - First Documented 4/18/20 4/19/20 23:45 00:54 Temp 36.2 Pulse 62 Resp 20 B/P (MAP) 145/75 (98) Pulse Ox 93 O2 Delivery Room Air Capillary Refill : Height, Weight, BMI Height: 5'8.00" Weight: 230lbs. oz. 104.817981aq; BMI Method:Stated General Appearance: No Apparent Distress, WD/WN HEENT: PERRL/EOMI, Normal ENT Inspection Neck: Normal Inspection, Non Tender, Supple Respiratory: Chest Non Tender, Lungs Clear, Normal Breath Sounds Cardiovascular: Regular Rate, Rhythm, No Edema, No Gallop, No JVD, No Murmur, Normal Peripheral Pulses Gastrointestinal: Non Tender, Soft; No Distended, No Guarding Extremity: Normal Capillary Refill, Normal Inspection, Non Tender, No Calf Tenderness Neurologic/Psychiatric: Alert, Oriented x3, No Motor/Sensory Deficits, Normal Mood/Affect Skin: Normal Color, Warm/Dry Progress/Results/Core Measures Results/Orders Lab Results Laboratory Tests Test 02/02/20 00:05 02/02/20 00:07 Range/Units White Blood Count 6.2 4.3-11.0 10^3/uL Red Blood Count 4.06 L 4.35-5.85 10^6/uL Hemoglobin 12.8 L 13.3-17.7 G/DL Hematocrit 38 L 40-54 % Mean Corpuscular Volume 93 80-99 FL Mean Corpuscular Hemoglobin 32 25-34 PG Mean Corpuscular Hemoglobin Concent 34 32-36 G/DL Red Cell Distribution Width 12.3 10.0-14.5 % Platelet Count 161 130-400 10^3/uL Mean Platelet Volume 9.4 7.4-10.4 FL Neutrophils (%) (Auto) 43 42-75 % Lymphocytes (%) (Auto) 45 H 12-44 % Monocytes (%) (Auto) 10 0-12 % Eosinophils (%) (Auto) 2 0-10 % Basophils (%) (Auto) 1 0-10 % Neutrophils # (Auto) 2.7 1.8-7.8 X 10^3 Lymphocytes # (Auto) 2.8 1.0-4.0 X 10^3 Monocytes # (Auto) 0.6 0.0-1.0 X 10^3 Eosinophils # (Auto) 0.1 0.0-0.3 10^3/uL Basophils # (Auto) 0.0 0.0-0.1 10^3/uL Prothrombin Time 13.0 12.2-14.7 SEC INR Comment 1.0 0.8-1.4 Activated Partial Thromboplast Time 29 24-35 SEC Sodium Level 141 135-145 MMOL/L Potassium Level 3.9 3.6-5.0 MMOL/L Chloride Level 103 98-107 MMOL/L Carbon Dioxide Level 24 21-32 MMOL/L Anion Gap 14 5-14 MMOL/L Blood Urea Nitrogen 21 H 7-18 MG/DL Creatinine 1.33 H 0.60-1.30 MG/DL Estimat Glomerular Filtration Rate 52 BUN/Creatinine Ratio 16 Glucose Level 122 H 70-105 MG/DL Calcium Level 8.6 8.5-10.1 MG/DL Corrected Calcium 8.4 L 8.5-10.1 MG/DL Total Bilirubin 1.0 0.1-1.0 MG/DL Aspartate Amino Transf (AST/SGOT) 18 5-34 U/L Alanine Aminotransferase (ALT/SGPT) 16 0-55 U/L Alkaline Phosphatase 87 40-136 U/L Troponin I < 0.30 <0.30 NG/ML Total Protein 6.4 6.4-8.2 GM/DL Albumin 4.2 3.2-4.5 GM/DL My Orders Orders - ROVENSTINELEE ANN DO Ed Iv/Invasive Line Start (02/02/20 00:07) Ekg Tracing (02/02/20 00:07) Chest 1 View Ap/Pa Only (02/02/20 00:07) Troponin I Fs (02/02/20 00:07) Protime With Inr (02/02/20 00:07) Partial Thromboplastin Time (02/02/20 00:07) Cbc With Automated Diff (02/02/20 00:07) Comprehensive Metabolic Panel (02/02/20 00:07) Aspirin Chewable Tablet (Baby Aspirin Ch (02/02/20 00:15) Nitroglycerin 0.4 Mg Btl 25's (Nitrostat (02/02/20 00:15) Nitroglycerin Ointment (Nitrobid Ointme (02/02/20 01:00) Heparin Drip 42961 Unit/500ml (Heparin (02/02/20 01:00) Medications Given in ED Vital Signs/I&O 02/01/20 02/01/20 02/02/20 23:45 23:45 00:54 Temp 36.2 36.4 Pulse 62 61 Resp 20 16 B/P (MAP) 145/75 (98) 149/74 Pulse Ox 93 O2 Delivery Room Air Room Air Room Air Initial ECG Impression Time: 11:18 Initial ECG Rate: 65 Initial ECG Comparisson: No Previous ECG Available Comment paced rhythm, rate of 65. No ST changes. Departure Impression Primary Impression: Chest pain Qualified Codes: R07.9 - Chest pain, unspecified Disposition: XFER SHT-TRM HOSP Condition: Stable Transfer Transfer Reason: Exceeds level of care (planned procedure @ [facility] on 02 February w Cardio.) Time Spoke to Accepting Phy: 00:40 Transfer Progress Notes Called [facility] transfer @ 0040 Pt scheduled for a heart cath w Dr Selby on 02 [facility]. Pt prefers to go to this facility for obvious continuity of care. Dr Asael Aly (transfer Doc) accepts for transfer @ 0050. 0100- spoke to Dr Aly again, will transfer to [facility] ER (before admission). Advised to start Heparin gtt and nitropaste. Method of Transfer: EMS Departure-Patient Inst. Referrals: ANALI OLIVAS MD (PCP/Family) Primary Care Physician LEE ANN MARTINEZ DO Feb 02, 2020 00:15
[2020-02-02 00:29] LABS: POTASSIUM 3.9 MMOL/L (3.6-5.0); SODIUM 141 MMOL/L (135-145)
[2020-02-02 00:30] LABS: ALANINE AMINOTRANSFERASE 16 U/L (0-55); ALBUMIN 4.2 GM/DL (3.2-4.5); ALKALINE PHOSPHATASE 87 U/L (40-136); BUN/CREATININE RATIO 16; CALCIUM 8.6 MG/DL (8.5-10.1); CARBON DIOXIDE 24 MMOL/L (21-32); CHLORIDE 103 MMOL/L (98-107); CREATININE SERUM 1.33 MG/DL (0.60-1.30); GFR ESTIMATED 52; GLUCOSE 122 MG/DL (70-105); TOTAL PROTEIN 6.4 GM/DL (6.4-8.2)
[2020-02-02 00:54] VITALS: BP 149/74
[2020-02-02] MEDS ORDERED: NITROGLYCERIN 2% OINT 1 GM UNIT DOSE PACKET TOP STA (01:00)
[2020-02-02] MEDS ORDERED: HEParin DRIP 25000 UNIT/500ML 500 ML IV ONE (01:00)
--- NOTE | 2020-02-02 08:11 | Diagnostic Imaging Report ---
INDICATION: Chest pain. Time of exam 12:13 AM Comparison is made with prior chest from 02/22/2019. Heart size is stable. Cardiac pacemaker remains in place. There is no infiltrate or failure. No effusion or pneumothorax is identified. IMPRESSION: Stable chest. No acute features detected. Dictated by: Dictated on workstation # [id number]
== END 2020-02-02 01:50 | disposition short-term general hospital (02) ==
LOC: EDUNIT# 23:41 → ER FS 23:44
DX: R07.89 Other chest pain (principal); I25.2 Old myocardial infarction; I11.0 Hypertensive heart disease with heart failure; I50.32 Chronic diastolic (congestive) heart failure; I25.10 Atherosclerotic heart disease of native coronary artery without angina pectoris; I48.91 Unspecified atrial fibrillation; Z95.5 Presence of coronary angioplasty implant and graft; Z95.0 Presence of cardiac pacemaker
CPT/HCPCS: 36415; 71045; 80053; 84484; 85025; 85610; 85730

== ENCOUNTER 2020-11-06 06:34 | Emergency (ER) | payer MEDICARE, OTHER ==
[~2020-11-06] VITALS: Ht 172.7 cm; Wt 103.4 kg
[~2020-11-06 06:34] MED LIST changes: -PANT40TA3; +PANT40TA52
--- NOTE | 2020-11-06 07:02 | Diagnostic Imaging Report ---
INDICATION: heart palpitations. TECHNIQUE: Single view chest 6:45 AM. CORRELATION STUDY: 02/02/2020 FINDINGS: Left-sided pacemaker appears stable and unremarkable. Unchanged cardiac enlargement. Vasculature within normal limits. The lungs are clear with no consolidating infiltrate. There is no significant effusion or pneumothorax. Old healed left posterior rib fractures. IMPRESSION: 1. Stable chest. Cardiac enlargement without failure. Dictated by: Dictated on workstation # [id number]
[2020-11-06 07:22] LABS: BASOPHILS % (AUTO) 0 % (0-10); EOSINOPHILS # (AUTO) 0.1 10^3/uL (0.0-0.3); EOSINOPHILS % (AUTO) 1 % (0-10); HEMATOCRIT 44 % (40-54); HEMOGLOBIN 14.7 G/DL (13.3-17.7); LYMPHOCYTES # (AUTO) 2.9 X 10^3 (1.0-4.0); LYMPHOCYTES % (AUTO) 41 % (12-44); MEAN CORPUSCULAR HEMOGLOBIN 31 PG (25-34); MEAN CORPUSCULAR HGB CONC 34 G/DL (32-36); MEAN CORPUSCULAR VOLUME 93 FL (80-99); MEAN PLATELET VOLUME 9.8 FL (7.4-10.4); MONOCYTES # (AUTO) 0.5 X 10^3 (0.0-1.0); MONOCYTES % (AUTO) 7 % (0-12); NEUTROPHILS # (AUTO) 3.6 X 10^3 (1.8-7.8); NEUTROPHILS % (AUTO) 51 % (42-75); PLATELET COUNT 158 10^3/uL (130-400); WHITE BLOOD COUNT 7.1 10^3/uL (4.3-11.0)
[2020-11-06 07:25] LABS: INR 1.1 (0.8-1.4); PROTHROMBIN TIME PATIENT 14.8 SEC (12.2-14.7)
[2020-11-06 07:29] LABS: POTASSIUM 3.9 MMOL/L (3.6-5.0)
[2020-11-06 07:30] LABS: CREATININE SERUM 1.27 MG/DL (0.60-1.30)
[2020-11-06 07:31] LABS: ALBUMIN 4.4 GM/DL (3.2-4.5); BILIRUBIN,TOTAL 1.3 MG/DL (0.1-1.0); CALCIUM 8.9 MG/DL (8.5-10.1); MAGNESIUM 1.7 MG/DL (1.6-2.4); TOTAL PROTEIN 6.6 GM/DL (6.4-8.2)
--- NOTE | 2020-11-06 07:34 | ED Cardiac General ---
History of Present Illness General Chief Complaint: Cardiac/General Problems Stated Complaint: HEART FLUTERING Nursing Triage Note: PT AMBULATE TO ROOM FS01 WITH C/O "HEART FLUTTERING". PT REPORTS HX OF HEART ATTACK. 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 PT DENIES CHEST PAIN. Source: patient Exam Limitations: no limitations History of Present Illness Date Seen by Provider: Nov 06, 2020 Time Seen by Provider: 07:00 Initial Comments 75-year-old male presents with onset of heart palpitations beginning about 4 AM today when he got up to use the restroom. Says he felt a little lightheaded, denied any chest pain or shortness of air. He laid down and it slowly subsided. He states that it lasted about 30 minutes or last and on arrival to the ER it completely stopped. Past medical history significant for atrial fibrillation with ablation a few months ago as well as coronary artery disease with a normal heart catheterization in January 2020. Also history of coronary stent. Otherwise patient without complaint, denies recent illness, fever or chills. Nausea vomiting or abdominal pain. Allergies and Home Medications Allergies Coded Allergies: hydrocodone (Unverified Adverse Reaction, Intermediate, SOA, wheezing, swelling, 02/12/19) midazolam (Unverified Adverse Reaction, Intermediate, Delirium, Hallucination, 02/12/19) Patient Home Medication List Home Medication List Reviewed: Yes Review of Systems Review of Systems Constitutional: No chills; dizziness (during episode of palpitatioin only, resolved afterward and not present on arrival); No fever, No malaise, No weakness EENTM: No Symptoms Reported Respiratory: Denies Cough, Denies Shortness of Air, Denies Stridor, Denies Wheezing Cardiovascular: Denies Chest Pain, Denies Edema; Irregular Heart Rate; Denies Lightheadedness; Palpitations; Denies Syncope Gastrointestinal: Denies Abdominal Pain, Denies Nausea, Denies Vomiting Psychiatric/Neurological: Denies Headache, Denies Numbness, Denies Paresthesia, Denies Seizure Past Tpqdoxi-Hapudv-Vzrloj Hx Past Med/Social Hx: Reviewed Nursing Past Med/Soc Hx Patient Social History Alcohol Use: Past History Smoking Status: Former Smoker Former Smoker, Quit: Oct 16, 2010 Recent Infectious Disease Expo: No Recent Hopitalizations: No Immunizations Up To Date Date of Pneumonia Vaccine: February 13, 2018 Date of Influenza Vaccine: Jul 16, 2018 Seasonal Allergies Seasonal Allergies: No Past Medical History Surgeries: Yes (Hernia repair , ; Colonoscopy, PTCA) Cardiac, Coronary Stent, Pacemaker Respiratory: No Cardiac: Yes (Diastolic CHF; chronic, Pacemaker/stent 2018) Atrial Fibrillation, Coronary Artery Disease, Heart Attack, Hypertension Neurological: No Genitourinary: Yes Benign Prostatic Hyperpl Gastrointestinal: Yes Abdominal Hernia, Gastrointestinal Bleed Musculoskeletal: Yes (Osteoarthritis knee) HEENT: No Cancer: No Psychosocial: No Integumentary: No Blood Disorders: No Physical Exam Vital Signs Vital Signs - First Documented 11/06/20 06:45 Temp 35.8 Pulse 61 Resp 17 B/P (MAP) 163/92 (115) O2 Delivery Room Air Capillary Refill : Less Than 3 Seconds Height, Weight, BMI Height: 5'8.00" Weight: 230lbs. oz. 104.688189qz; 34.00 BMI Method:Stated General Appearance: No Apparent Distress, WD/WN HEENT: PERRL/EOMI, Normal ENT Inspection Neck: Normal Inspection, Non Tender, Supple Respiratory: Chest Non Tender, Lungs Clear, Normal Breath Sounds, No Accessory Muscle Use, No Respiratory Distress Cardiovascular: Regular Rate, Rhythm, No Edema, No Gallop, No JVD, Normal Peripheral Pulses Gastrointestinal: Non Tender, Soft; No Distended, No Guarding Extremity: Normal Capillary Refill, Normal Inspection, Non Tender Neurologic/Psychiatric: Alert, Oriented x3, No Motor/Sensory Deficits, Normal Mood/Affect Progress/Results/Core Measures Results/Orders Lab Results Laboratory Tests Test 11/06/20 06:55 Range/Units White Blood Count 7.1 4.3-11.0 10^3/uL Red Blood Count 4.71 4.35-5.85 10^6/uL Hemoglobin 14.7 13.3-17.7 G/DL Hematocrit 44 40-54 % Mean Corpuscular Volume 93 80-99 FL Mean Corpuscular Hemoglobin 31 25-34 PG Mean Corpuscular Hemoglobin Concent 34 32-36 G/DL Red Cell Distribution Width 11.9 10.0-14.5 % Platelet Count 158 130-400 10^3/uL Mean Platelet Volume 9.8 7.4-10.4 FL Immature Granulocyte % (Auto) 0 % Neutrophils (%) (Auto) 51 42-75 % Lymphocytes (%) (Auto) 41 12-44 % Monocytes (%) (Auto) 7 0-12 % Eosinophils (%) (Auto) 1 0-10 % Basophils (%) (Auto) 0 0-10 % Neutrophils # (Auto) 3.6 1.8-7.8 X 10^3 Lymphocytes # (Auto) 2.9 1.0-4.0 X 10^3 Monocytes # (Auto) 0.5 0.0-1.0 X 10^3 Eosinophils # (Auto) 0.1 0.0-0.3 10^3/uL Basophils # (Auto) 0.0 0.0-0.1 10^3/uL Immature Granulocyte # (Auto) 0.0 0.0-0.1 10^3/uL Prothrombin Time 14.8 H 12.2-14.7 SEC INR Comment 1.1 0.8-1.4 Activated Partial Thromboplast Time 31 24-35 SEC Sodium Level 142 135-145 MMOL/L Potassium Level 3.9 3.6-5.0 MMOL/L Chloride Level 104 98-107 MMOL/L Carbon Dioxide Level 27 21-32 MMOL/L Anion Gap 11 5-14 MMOL/L Blood Urea Nitrogen 18 7-18 MG/DL Creatinine 1.27 0.60-1.30 MG/DL Estimat Glomerular Filtration Rate 55 BUN/Creatinine Ratio 14 Glucose Level 145 H 70-105 MG/DL Calcium Level 8.9 8.5-10.1 MG/DL Corrected Calcium 8.6 8.5-10.1 MG/DL Magnesium Level 1.7 1.6-2.4 MG/DL Total Bilirubin 1.3 H 0.1-1.0 MG/DL Aspartate Amino Transf (AST/SGOT) 16 5-34 U/L Alanine Aminotransferase (ALT/SGPT) 16 0-55 U/L Alkaline Phosphatase 104 40-136 U/L Total Protein 6.6 6.4-8.2 GM/DL Albumin 4.4 3.2-4.5 GM/DL Vital Signs/I&O 11/06/20 06:45 Temp 35.8 Pulse 61 Resp 17 B/P (MAP) 163/92 (115) O2 Delivery Room Air Blood Pressure Mean: 115 Initial ECG Impression Date: Nov 06, 2020 Initial ECG Impression Time: 07:00 Initial ECG Rate: 63 Initial ECG Intervals no acute ST changes or ectopy Diagnostic Imaging Comments ECHNIQUE: Single view chest 6:45 AM. CORRELATION STUDY: 02/02/2020 FINDINGS: Left-sided pacemaker appears stable and unremarkable. Unchanged cardiac enlargement. Vasculature within normal limits. The lungs are clear with no consolidating infiltrate. There is no significant effusion or pneumothorax. Old healed left posterior rib fractures. IMPRESSION: 1. Stable chest. Cardiac enlargement without failure. Dictated on workstation # [id number] Dict: 11/06/20 0658 Trans: 11/06/20 0702 [id number] Interpreted by: CHRISTIAN APARICIO DO Electronically signed by: Departure Impression Primary Impression: Palpitations Additional Impression: Atrial fibrillation Qualified Codes: I48.0 - Paroxysmal atrial fibrillation Disposition: HOME, SELF-CARE Condition: Stable Departure-Patient Inst. Referrals: ANALI OLIVAS MD (PCP/Family) Primary Care Physician Patient Instructions: Atrial Fibrillation (DC), Palpitations (DC), Bradycardia (DC) Add. Discharge Instructions: Follow up with your PCP in 1 week for re-evaluation. Call your [facility] if the palpitations become more frequent. Return to the ER if the palpitations or irregular rhythm persist beyond a few minutes or are associated with Chest pain or difficulty breathing. All discharge instructions reviewed with patient and/or family. Voiced understanding. LEE ANN MARTINEZ DO Nov 06, 2020 07:34
[2020-11-06 08:07] VITALS: BP 116/72
== END 2020-11-06 08:15 | disposition home or self-care (01) ==
LOC: EDUNIT# 06:34 → ER FS 06:37
DX: R00.2 Palpitations (principal); I48.91 Unspecified atrial fibrillation; I25.2 Old myocardial infarction; Z95.5 Presence of coronary angioplasty implant and graft; Z95.0 Presence of cardiac pacemaker; Z87.891 Personal history of nicotine dependence; Z88.5 Allergy status to narcotic agent; Z88.8 Allergy status to other drugs, medicaments and biological substances
CPT/HCPCS: 36415; 71045; 80053; 83735; 83880; 84484; 85025; 85610; 85730; 93005; 93041

== ENCOUNTER 2020-11-07 09:43 | Emergency (ER) | payer MEDICARE, OTHER ==
[~2020-11-07] VITALS: Ht 172 cm; Wt 110.0 kg
[2020-11-07 09:45] VITALS: BP_SYST 103; BP_SYST 149; BP_SYST 150; BP_DIAS 66; BP_DIAS 82; BP_DIAS 84
--- NOTE | 2020-11-07 09:50 | ED General ---
General Stated Complaint: dizziness History of Present Illness Date Seen by Provider: Nov 07, 2020 Time Seen by Provider: 09:45 Initial Comments 75-year-old male presents with dizziness. Reports that he had a little bit yesterday when he was seen for palpitations. At that time he had a negative work-up. Patient presents today because he reports he continues to have dizziness that he wants to have further evaluated. He reports it is worse when he stands. No change with eye movement, head movement. He does not have chest pain, nausea, vomiting, fever, chills, shortness of breath, cough, diarrhea or any other systemic complaints. Just reports that for the last 24 hours when he stands up he has had significant lightheadedness. Allergies and Home Medications Allergies Coded Allergies: hydrocodone (Unverified Adverse Reaction, Intermediate, SOA, wheezing, swelling, 02/12/19) midazolam (Unverified Adverse Reaction, Intermediate, Delirium, Hallucination, 02/12/19) Patient Home Medication List Home Medication List Reviewed: Yes Review of Systems Review of Systems Constitutional: No chills; dizziness; No fever EENTM: no symptoms reported; No ear pain, No blurred vision, No throat pain Respiratory: No cough, No dyspnea on exertion, No orthopnea, No short of breath Cardiovascular: No chest pain, No palpitations Gastrointestinal: No abdominal pain, No constipation, No nausea, No vomiting Genitourinary: no symptoms reported Musculoskeletal: no symptoms reported Skin: dryness Psychiatric/Neurological: See HPI Hematologic/Lymphatic: No Symptoms Reported Past Zcyrraf-Gkxavv-Ckgmey Hx Past Med/Social Hx: Reviewed Nursing Past Med/Soc Hx Patient Social History Former Smoker, Quit: Oct 16, 2010 Recent Hopitalizations: No Immunizations Up To Date Date of Pneumonia Vaccine: February 13, 2018 Date of Influenza Vaccine: Jul 16, 2018 Seasonal Allergies Seasonal Allergies: No Past Medical History Surgeries: Yes (Hernia repair , ; Colonoscopy, PTCA) Cardiac, Coronary Stent, Pacemaker Respiratory: No Cardiac: Yes (Diastolic CHF; chronic, Pacemaker/stent 2018) Atrial Fibrillation, Coronary Artery Disease, Heart Attack, Hypertension Neurological: No Genitourinary: Yes Benign Prostatic Hyperpl Gastrointestinal: Yes Abdominal Hernia, Gastrointestinal Bleed Musculoskeletal: Yes (Osteoarthritis knee) HEENT: No Cancer: No Psychosocial: No Integumentary: No Blood Disorders: No Physical Exam Vital Signs Vital Signs - First Documented 11/07/20 09:44 Temp 36.0 Pulse 64 Resp 18 B/P (MAP) 160/88 (112) Pulse Ox 98 O2 Delivery Room Air Capillary Refill : Height, Weight, BMI Height: 5'8.00" Weight: 230lbs. oz. 104.859892gc; 34.00 BMI Method:Stated General Appearance: No Apparent Distress, WD/WN HEENT: PERRL/EOMI, TMs Normal Neck: Normal Inspection, Non Tender, Supple Respiratory: Normal Breath Sounds Cardiovascular: Regular Rate, Rhythm, No Edema, Normal Peripheral Pulses Gastrointestinal: Non Tender, Soft Extremity: Normal Capillary Refill, Normal Inspection, Normal Range of Motion Neurologic/Psychiatric: Alert, Oriented x3, No Motor/Sensory Deficits, Normal Mood/Affect, manager desktop II-XII Norm as Tested Skin: Normal Color, Warm/Dry Progress/Results/Core Measures Suspected Sepsis SIRS Temperature: Pulse: Respiratory Rate: Laboratory Tests 11/07/20 09:58: White Blood Count 7.0 Blood Pressure / Mean: Laboratory Tests 11/07/20 09:58: Creatinine 1.16, Platelet Count 156, Total Bilirubin 1.7H Results/Orders Lab Results Laboratory Tests Test 11/07/20 09:58 11/07/20 10:30 Range/Units White Blood Count 7.0 4.3-11.0 10^3/uL Red Blood Count 4.82 4.35-5.85 10^6/uL Hemoglobin 14.8 13.3-17.7 G/DL Hematocrit 44 40-54 % Mean Corpuscular Volume 92 80-99 FL Mean Corpuscular Hemoglobin 31 25-34 PG Mean Corpuscular Hemoglobin Concent 33 32-36 G/DL Red Cell Distribution Width 12.0 10.0-14.5 % Platelet Count 156 130-400 10^3/uL Mean Platelet Volume 9.7 7.4-10.4 FL Immature Granulocyte % (Auto) 0 % Neutrophils (%) (Auto) 59 42-75 % Lymphocytes (%) (Auto) 33 12-44 % Monocytes (%) (Auto) 7 0-12 % Eosinophils (%) (Auto) 1 0-10 % Basophils (%) (Auto) 0 0-10 % Neutrophils # (Auto) 4.1 1.8-7.8 X 10^3 Lymphocytes # (Auto) 2.3 1.0-4.0 X 10^3 Monocytes # (Auto) 0.5 0.0-1.0 X 10^3 Eosinophils # (Auto) 0.1 0.0-0.3 10^3/uL Basophils # (Auto) 0.0 0.0-0.1 10^3/uL Immature Granulocyte # (Auto) 0.0 0.0-0.1 10^3/uL Sodium Level 142 135-145 MMOL/L Potassium Level 4.0 3.6-5.0 MMOL/L Chloride Level 105 98-107 MMOL/L Carbon Dioxide Level 26 21-32 MMOL/L Anion Gap 11 5-14 MMOL/L Blood Urea Nitrogen 18 7-18 MG/DL Creatinine 1.16 0.60-1.30 MG/DL Estimat Glomerular Filtration Rate > 60 BUN/Creatinine Ratio 16 Glucose Level 134 H 70-105 MG/DL Calcium Level 9.4 8.5-10.1 MG/DL Corrected Calcium 9.2 8.5-10.1 MG/DL Magnesium Level 1.6 1.6-2.4 MG/DL Total Bilirubin 1.7 H 0.1-1.0 MG/DL Aspartate Amino Transf (AST/SGOT) 16 5-34 U/L Alanine Aminotransferase (ALT/SGPT) 15 0-55 U/L Alkaline Phosphatase 108 40-136 U/L C-Reactive Protein 0.09 <0.50 MG/DL Total Protein 6.9 6.4-8.2 GM/DL Albumin 4.3 3.2-4.5 GM/DL Urine Color YELLOW Urine Clarity CLEAR Urine pH 6.0 5-9 Urine Specific [place] 1.020 1.016-1.022 Urine Protein NEGATIVE NEGATIVE Urine Glucose (UA) NEGATIVE NEGATIVE Urine Ketones TRACE H NEGATIVE Urine Nitrite NEGATIVE NEGATIVE Urine Bilirubin NEGATIVE NEGATIVE Urine Urobilinogen 0.2 < = 1.0 MG/DL Urine Leukocyte Esterase NEGATIVE NEGATIVE Urine RBC (Auto) NEGATIVE NEGATIVE Urine RBC NONE /HPF Urine WBC 0-2 /HPF Urine Squamous Epithelial Cells NONE /HPF Urine Crystals NONE /LPF Urine Bacteria NEGATIVE /HPF Urine Casts NONE /LPF Urine Mucus NEGATIVE /LPF Urine Culture Indicated NO My Orders Orders - NISREEN,NEWTON Lizbeth DO Ed Iv/Invasive Line Start (11/07/20 09:50) Ekg Tracing (11/07/20 09:50) Monitor-Rhythm Ecg Trace Only (11/07/20 09:50) Orthostatic Vital Signs (Adult (11/07/20 09:50) Cbc With Automated Diff (11/07/20 09:50) Comprehensive Metabolic Panel (11/07/20 09:50) Magnesium (11/07/20 09:50) Ua Culture If Indicated (11/07/20 09:50) Crp Fs (11/07/20 09:50) Ed Iv/Invasive Line Start (11/07/20 09:50) Ns Iv 1000 Ml (Sodium Chloride 0.9%) (11/07/20 10:00) Ct Head Wo (11/07/20 09:50) Vital Signs/I&O 11/07/20 11/07/20 09:44 09:45 Temp 36.0 Pulse 64 64 63 65 Resp 18 B/P (MAP) 160/88 (112) 149/82 (104) 150/84 (106) 103/66 (78) Pulse Ox 98 O2 Delivery Room Air Capillary Refill : Progress Note : Time: 10:58 Progress Note Patient feeling a lot better following IV fluids. Patient with negative labs CT EKG is unchanged. I suspect it is related to his reutilization of Lasix for about the last 3 weeks. I recommend he follows up with his primary care provider since he had Ortho static changes on his blood pressure when he stood. Patient stable and discharged ECG Initial ECG Impression Date: Nov 07, 2020 Initial ECG Impression Time: 09:48 Initial ECG Rate: 67 Initial ECG Comparisson: Unchanged Comment No acute changes, similar to EKG on 11/06/2020 Diagnostic Imaging Diagonstic Imaging: CT Plain Films/CT/US/NM/MRI: head Comments [facility] [place] NAME: MERNA STEINER V [facility] REC#: [id number] PT STATUS: REG ER : 1945 PHYSICIAN: NEWTON NIELSON DO ADMIT DATE: 11/07/20/ER FS Draft Date of Exam:11/07/20 CT HEAD WO PROCEDURE: CT head without contrast. TECHNIQUE: Multiple contiguous axial images were obtained through the brain without the use of intravenous contrast. Auto Exposure Controls were utilized during the CT exam to meet ALARA standards for radiation dose reduction. INDICATION: Dizziness and lightheadedness. FINDINGS: There is prominence of the ventricles and sulci. There is no hydrocephalus or cerebral edema. There is no midline shift or mass-effect. There is no intracranial mass, hemorrhage, or extra-axial fluid collection. There is some diffuse decreased attenuation of the periventricular white matter which is nonspecific. The visualized paranasal sinuses and mastoid air cells are clear. There are no regional areas of decreased attenuation appreciated to suggest an acute CVA. IMPRESSION: 1. No acute intracranial process. 2. Age-appropriate atrophy. 3. Decreased attenuation of the periventricular white matter which is nonspecific, however, likely reflects senescent change and/or chronic small vessel ischemic disease. Reviewed: Reviewed by Me, Reviewed/Discussed Departure Impression Primary Impression: Orthostatic hypotension Additional Impression: Dizziness Disposition: 01 HOME, SELF-CARE Condition: Stable Departure-Patient Inst. Referrals: ANALI OLIVAS MD (PCP/Family) Primary Care Physician Patient Instructions: Orthostatic Hypotension (DC) Add. Discharge Instructions: Follow-up with your primary care provider next week for recheck of today's symptoms and medication review NEWTON NIELSON DO Nov 07, 2020 09:50
[2020-11-07] MEDS ORDERED: NS IV 1000 ML 1,000 ML IV SCH (10:00)
[2020-11-07 10:05] LABS: HEMATOCRIT 44 % (40-54); HEMOGLOBIN 14.8 G/DL (13.3-17.7); MEAN CORPUSCULAR HEMOGLOBIN 31 PG (25-34)
[2020-11-07 10:06] LABS: BASOPHILS % (AUTO) 0 % (0-10); EOSINOPHILS % (AUTO) 1 % (0-10); LYMPHOCYTES # (AUTO) 2.3 X 10^3 (1.0-4.0); LYMPHOCYTES % (AUTO) 33 % (12-44); MEAN CORPUSCULAR HGB CONC 33 G/DL (32-36); MEAN CORPUSCULAR VOLUME 92 FL (80-99); MEAN PLATELET VOLUME 9.7 FL (7.4-10.4); MONOCYTES # (AUTO) 0.5 X 10^3 (0.0-1.0); MONOCYTES % (AUTO) 7 % (0-12); NEUTROPHILS # (AUTO) 4.1 X 10^3 (1.8-7.8); NEUTROPHILS % (AUTO) 59 % (42-75); PLATELET COUNT 156 10^3/uL (130-400)
[2020-11-07 10:07] LABS: EOSINOPHILS # (AUTO) 0.1 10^3/uL (0.0-0.3)
[2020-11-07 10:24] LABS: CHLORIDE 105 MMOL/L (98-107); SODIUM 142 MMOL/L (135-145)
[2020-11-07 10:25] LABS: ALANINE AMINOTRANSFERASE 15 U/L (0-55); ALBUMIN 4.3 GM/DL (3.2-4.5); ALKALINE PHOSPHATASE 108 U/L (40-136); BILIRUBIN,TOTAL 1.7 MG/DL (0.1-1.0); BUN/CREATININE RATIO 16; CALCIUM 9.4 MG/DL (8.5-10.1); CARBON DIOXIDE 26 MMOL/L (21-32); CREATININE SERUM 1.16 MG/DL (0.60-1.30); GFR ESTIMATED > 60; GLUCOSE 134 MG/DL (70-105); MAGNESIUM 1.6 MG/DL (1.6-2.4); TOTAL PROTEIN 6.9 GM/DL (6.4-8.2)
--- NOTE | 2020-11-07 10:27 | Diagnostic Imaging Report ---
PROCEDURE: CT head without contrast. TECHNIQUE: Multiple contiguous axial images were obtained through the brain without the use of intravenous contrast. Auto Exposure Controls were utilized during the CT exam to meet ALARA standards for radiation dose reduction. INDICATION: Dizziness and lightheadedness. FINDINGS: There is prominence of the ventricles and sulci. There is no hydrocephalus or cerebral edema. There is no midline shift or mass-effect. There is no intracranial mass, hemorrhage, or extra-axial fluid collection. There is some diffuse decreased attenuation of the periventricular white matter which is nonspecific. The visualized paranasal sinuses and mastoid air cells are clear. There are no regional areas of decreased attenuation appreciated to suggest an acute CVA. IMPRESSION: 1. No acute intracranial process. 2. Age-appropriate atrophy. 3. Decreased attenuation of the periventricular white matter which is nonspecific, however, likely reflects senescent change and/or chronic small vessel ischemic disease. Dictated by: Dictated on workstation # [id number]
[2020-11-07 10:44] LABS: CLARITY,URINE CLEAR; COLOR,URINE YELLOW
[2020-11-07 10:45] LABS: BACTERIA,URINE NEGATIVE /HPF; BILIRUBIN,URINE NEGATIVE (NEGATIVE); GLUCOSE, URINE (UA) NEGATIVE (NEGATIVE); KETONES,URINE TRACE (NEGATIVE); LEUKOCYTE ESTERASE ,URINE NEGATIVE (NEGATIVE); NITRITE,URINE NEGATIVE (NEGATIVE); PROTEIN,URINE NEGATIVE (NEGATIVE); WBC,URINE 0-2 /HPF
[2020-11-07 10:58] VITALS: BP 149/74
== END 2020-11-07 11:05 | disposition home or self-care (01) ==
LOC: EDUNIT# 09:43 → ER FS 09:45
DX: I95.1 Orthostatic hypotension (principal); R42 Dizziness and giddiness; I25.2 Old myocardial infarction; Z88.5 Allergy status to narcotic agent; Z88.8 Allergy status to other drugs, medicaments and biological substances; Z95.5 Presence of coronary angioplasty implant and graft; Z95.0 Presence of cardiac pacemaker; Z87.891 Personal history of nicotine dependence
CPT/HCPCS: 36415; 70450; 80053; 81000; 83735; 85025; 86141; 93005; 93041

== ENCOUNTER 2023-08-09 08:46 | Emergency (ER) | payer MEDICARE, OTHER ==
[~2023-08-09] VITALS: Ht 172 cm; Wt 95.0 kg
[~2023-08-09 08:46] MED LIST changes: -LISI-556; +LISI5TAB20; +TERA5CAP10; -TERA5CAP3
[2023-08-09] MEDS ORDERED: dilTIAZem INJ 25 MG/5 ML VIAL IVP STA (09:02)
--- NOTE | 2023-08-09 09:04 | ED Cardiac General ---
History of Present Illness General Chief Complaint: Cardiac/General Problems Stated Complaint: A-FIB Source: patient History of Present Illness Date Seen by Provider: Aug 09, 2023 Time Seen by Provider: 08:48 Initial Comments 78-year-old male presenting with complaints of palpitations since yesterday. When his blood pressure cuff would not read this morning he finally came to the emergency department. He denies having any chest pain or shortness of breath, nausea, fever, chills, abdominal pain. He does have a history of atrial fibrillation and has had 2 prior ablations as well as he has a watchman. He follows with buckle wire inserter Dr. Hsu out of [facility]. He last had an ablation April 26. He did have knee replacement surgery 5 weeks ago and is still recovering from that. He denies missing any doses of medications or anything to trigger atrial fibrillation. 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: No ASA po ELECTRODE CLEANING MACHINE OPERATOR: No Associated Systoms: No Chest Pain, No Cough, No Diaphoresis, No Fever/Chills, No Headaches, No Loss of Appetite, No Malaise, No Nausea/Vomiting, No Rash, No Seizure, No Shortness of Air, No Syncope, No Weakness Allergies and Home Medications Allergies Coded Allergies: hydrocodone (Unverified Adverse Reaction, Intermediate, SOA, wheezing, swelling, 02/12/19) midazolam (Unverified Adverse Reaction, Intermediate, Delirium, Hallucination, 02/12/19) Patient Home Medication List Home Medication List Reviewed: Yes Apixaban (Eliquis) 5 Mg Tablet, (Reported) Entered as Reported by: MIRIAN SIMMS on 02/12/19 1207 Apixaban (Eliquis) 5 Mg Tablet, 5 MG PO BID Prescribed by: KATHLEEN LEAL on 08/09/23 1118 Atorvastatin Calcium (Atorvastatin Calcium) 80 Mg Tablet, (Reported) Entered as Reported by: MIRIAN SIMMS on 02/12/19 1207 Clopidogrel Bisulfate (Clopidogrel) 75 Mg Tablet, (Reported) Entered as Reported by: MIRIAN SIMMS on 02/12/19 1207 Finasteride (Finasteride) 5 Mg Tablet, (Reported) Entered as Reported by: MIRIAN SIMMS on 02/12/19 1207 Lisinopril (Lisinopril) 5 Mg Tablet, (Reported) Entered as Reported by: MIRIAN SIMMS on 02/12/19 1207 Magnesium Oxide (Magnesium Oxide) 400 Mg (241.3 Mg Magnesium) Tablet, 400 MG PO BID Prescribed by: KATHLEEN LEAL on 08/09/23 1118 Metoprolol Tartrate (Metoprolol Tartrate) 25 Mg Tablet, (Reported) Entered as Reported by: MIRIAN SIMMS on 02/12/19 1207 Pantoprazole Sodium (Pantoprazole Sodium) 40 Mg Tablet., (Reported) Entered as Reported by: MIRIAN SIMMS on 02/12/19 120 Terazosin HCl (Terazosin HCl) 5 Mg Capsule, (Reported) Entered as Reported by: MIRIAN SIMMS on 02/12/19 1207 Review of Systems Review of Systems Constitutional: No chills, No fever EENTM: No Symptoms Reported Respiratory: No Symptoms Reported Cardiovascular: Palpitations Gastrointestinal: No Symptoms Reported Genitourinary: No Symptoms Reported Musculoskeletal: no symptoms reported Skin: no symptoms reported Psychiatric/Neurological: No Symptoms Reported Past [facility] Hx Patient Social History Tobacco Use?: No Seasonal Allergies Seasonal Allergies: No Past Medical History Surgery/Hospitalization HX: Atrial fibrillation, coronary artery disease, cardiac stent, pacemaker, hypertension, BPH, GI bleed Surgeries: Yes (Hernia repair , ; Colonoscopy, PTCA) Cardiac, Coronary Stent, Pacemaker Respiratory: No Cardiac: Yes (Diastolic CHF; chronic, Pacemaker/stent 2018) Atrial Fibrillation, Coronary Artery Disease, Heart Attack, Hypertension Neurological: No Genitourinary: Yes Benign Prostatic Hyperpl Gastrointestinal: Yes Abdominal Hernia, Gastrointestinal Bleed Musculoskeletal: Yes (Osteoarthritis knee) HEENT: No Cancer: No Psychosocial: No Integumentary: No Blood Disorders: No Physical Exam Vital Signs Vital Signs - First Documented 08/09/23 08:58 Temp 36.7 Pulse 126 Resp 18 B/P (MAP) 123/87 (99) Pulse Ox 98 O2 Delivery Room Air Capillary Refill : Height, Weight, BMI Height: 5'8.00" Weight: 230lbs. oz. 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 II-XII Norm as Tested Skin: Normal Color, Warm/Dry, Other (dry flaky skin) Progress/Results/Core Measures Results/Orders Lab Results Laboratory Tests Test 08/09/23 09:02 Range/Units White Blood Count 5.8 4.3-11.0 10^3/uL Red Blood Count 3.72 L 4.30-5.52 10^6/uL Hemoglobin 11.2 L 13.3-17.7 g/dL Hematocrit 35 L 40-54 % Mean Corpuscular Volume 94 80-99 fL Mean Corpuscular Hemoglobin 30 25-34 pg Mean Corpuscular Hemoglobin Concent 32 32-36 g/dL Red Cell Distribution Width 13.3 10.0-14.5 % Platelet Count 143 130-400 10^3/uL Mean Platelet Volume 9.7 9.0-12.2 fL Immature Granulocyte % (Auto) 0 % Neutrophils (%) (Auto) 52 42-75 % Lymphocytes (%) (Auto) 38 12-44 % Monocytes (%) (Auto) 7 0-12 % Eosinophils (%) (Auto) 2 0-10 % Basophils (%) (Auto) 1 0-10 % Neutrophils # (Auto) 3.0 1.8-7.8 10^3/uL Lymphocytes # (Auto) 2.2 1.0-4.0 10^3/uL Monocytes # (Auto) 0.4 0.0-1.0 10^3/uL Eosinophils # (Auto) 0.1 0.0-0.3 10^3/uL Basophils # (Auto) 0.0 0.0-0.1 10^3/uL Immature Granulocyte # (Auto) 0.0 0.0-0.1 10^3/uL Prothrombin Time 13.3 12.2-14.7 SEC INR Comment 1.0 0.8-1.4 Activated Partial Thromboplast Time 27 24-35 SEC D-Dimer 2.06 H 0.00-0.49 UG/ML Sodium Level 140 135-145 MMOL/L Potassium Level 3.9 3.6-5.0 MMOL/L Chloride Level 107 98-107 MMOL/L Carbon Dioxide Level 23 21-32 MMOL/L Anion Gap 10 5-14 MMOL/L Blood Urea Nitrogen 13 7-18 MG/DL Creatinine 1.47 H 0.60-1.30 MG/DL Estimat Glomerular Filtration Rate 48 BUN/Creatinine Ratio 9 Glucose Level 153 H 70-105 MG/DL Calcium Level 8.7 8.5-10.1 MG/DL Corrected Calcium 8.9 8.5-10.1 MG/DL Magnesium Level 1.3 L 1.6-2.4 MG/DL Total Bilirubin 1.0 0.1-1.0 MG/DL Aspartate Amino Transf (AST/SGOT) 17 5-34 U/L Alanine Aminotransferase (ALT/SGPT) 8 0-55 U/L Alkaline Phosphatase 133 40-136 U/L Troponin I < 0.30 <0.30 NG/ML Pro-B-Type Natriuretic Peptide 3950.0 H <450.0 PG/ML Total Protein 6.1 L 6.4-8.2 GM/DL Albumin 3.7 3.2-4.5 GM/DL Lipase 31 8-78 U/L My Orders Orders - ENYAKATHLEEN GONCALVES MD Cbc And Automated Diff (08/09/23 09:02) Magnesium (08/09/23 09:02) Chest 1 View Ap/Pa Only (08/09/23 09:02) Ekg Tracing (08/09/23 09:02) Comprehensive Metabolic Panel (08/09/23 09:02) Protime With Inr (08/09/23 09:02) Partial Thromboplastin Time (08/09/23 09:02) O2 (08/09/23 09:02) Monitor-Rhythm Ecg Trace Only (08/09/23 09:02) Ed Iv/Invasive Line Start (08/09/23 09:02) Lipase (08/09/23 09:02) Troponin I Fs (08/09/23 09:02) Probnp Fs (08/09/23 09:02) Diltiazem Injection (Diltiazem Injection (08/09/23 09:02) Fibrin Degradation Products (08/09/23 09:04) Ekg Tracing (08/09/23 09:14) Apixaban Tablet (Apixaban Tablet) (08/09/23 09:26) Magnesium 1 Gm/100 Ml Ivpb (Magnesium 1 (08/09/23 09:41) Ct Angio Chest W (08/09/23 09:41) Iohexol Injection (Omnipaque 350 Mg/Ml 1 (08/09/23 10:00) Received Contrast (Hold Metformin- Contr (08/09/23 10:00) Ns (Ivpb) 100 Ml (Sodium Chloride 0.9% 1 (08/09/23 10:00) Medications Given in ED Current Medications Medications Dose Ordered Sig/Frantz Route Start Time Stop Time Status Last Admin Dose Admin Iohexol 100 ml ONCE ONCE IV 08/09/23 10:00 08/09/23 10:01 DC 08/09/23 10:15 100 ML Sodium Chloride 100 ml ONCE ONCE IV 08/09/23 10:00 08/09/23 10:01 DC 08/09/23 10:15 80 ML Vital Signs/I&O 08/09/23 08/09/23 08/09/23 08:58 09:11 11:20 Temp 36.7 36.7 Pulse 126 101 69 Resp 18 18 B/P (MAP) 123/87 (99) 115/63 115/64 Pulse Ox 98 97 O2 Delivery Room Air Room Air Progress Progress Note #1: Progress Note Differential diagnosis includes atrial fibrillation, dehydration, pulmonary e mbolism, heart palpitations, myocardial infarction. Establish peripheral IV access and send labs for complete blood count, comp rehensive metabolic profile, coagulation factors, D-dimer, magnesium, troponin, proBNP. 1 view chest x-ray to look for pathology in the chest. Electrocardiogram to look for ischemia and evaluate his rate and rhythm. Placed on cardiac writing tutor. My initial interpretation is that he is in atrial fibrillation with a heart rate of 118. Blood pressure is stable at 111/63. He has oxygen saturation of 97% on room air. Administer diltiazem 10 mg IV bolus to try and help with his heart rate and rhythm. Might require a drip of diltiazem if he continues to have atrial fibrillation. Will verify with patient that he is still taking a blood thinner. If he does not still take one, I will give him a dose of Lovenox. Progress Note #2: Time: 09:20 Progress Note After patient received the diltiazem 10 mg IV boluses heart rate did slow down to 72 and appeared more regular however still not seen a clear P waves with his QRS complexes. A second electrocardiogram was obtained and read atrial flutter with a rate of 72 bpm. He had no acute ST elevation. Administer a dose of Eliquis 10 mg p.o. x1 as patient is not taking any blood thinners other than a baby aspirin. He states that they had stopped the Eliquis after he had his last ablation in April. He does have a watchman in place as well. He did not have any acute abnormality on his 1 view chest x-ray. Blood pressure continues to remain stable 111/65. Oxygen saturation 95 to 97% on room air. Progress Note #3: Time: 09:48 Progress Note Comprehensive metabolic profile did not show any acute electrolyte abnormality on his basic electrolytes however his magnesium was low at 1.3. This could also contribute to his atrial fibrillation. His D-dimer was elevated over 2. With his recent knee surgery 5 weeks ago even though he has a watchman in place we will perform a CT angiography of the chest to look for possible pulmonary embolism as another potential cause to trigger his atrial fibrillation. Administer 1 g of magnesium IV to try and help with his low magnesium. Once his scan is back will check in with his buckle wire inserter Dr. Hsu out of [facility] in [place]. Unsure if the buckle wire inserter would recommend continued antico agulation or depend on the watchman to help prevent blood clots. Also depending on his CT scan if it does show a PE then he would definitely need to continue on anticoagulation until cleared by his regular doctor. Progress Note #4: Time: 10:[address] angiography negative for Pulmonary embolus. some incidental pulmonary nodules ween in upper lobes recommended to repeat Ct scan in 1 year to verify stability. Will check with Cardiology to see if they recommend continued anticoagulation or other treatments for his recurrent atiral fibrillation after ablation in April. [id number] Hsu, buckle wire inserter, in [place]. I spoke with ALEX Rosenberg, and she took the patient information and said she would send it to Dr. Hsu to review and have him call me back. 1120 Dr. Hsu called me back and I discussed the patient presentation and finding for recurrent Atrial fibrillation today. Also discussed the patient had low magnesium and supplement was given here as well as prescription for home. the buckle wire inserter was in agreement with these plans and stated that with patient having a Watchman procedure he did not require any stronger blood thinner and could just stay on his baby aspirin. Patient has appointment Nov with his EP buckle wire inserter to follow up from ablation done in April. Will defer to that appointment for any additional treatments. I updated the patient on the information from Dr. Hsu. Initial ECG Impression Date: Aug 09, 2023 Initial ECG Impression Time: 08:56 Initial ECG Rate: 110 Initial ECG Rhythm: A Fib/Flutter Initial ECG Comparisson: Changed (October 2020 showed sinus tachycardia) Comment Based on initial interpretation and review his electrocardiogram shows atrial fibrillation with a heart rate of 110 bpm. Left anterior fascicular block. There is no acute ST elevation. QT interval 370 ms with a QTc interval 372 ms. Compared to his last tracing from October 2020 that look like he is in atrial fibrillation now and it was sinus tachycardia with more clear P waves then. EKG : EKG Time: 09:21 Rate: 72 Rhythm: A Fib/Flutter ECG Comparisson: Changed (Improved rate from initial EKG a 56) Comment Electrocardiogram shows atrial flutter with a heart rate of [address] elevation. QT interval 361 ms with a QTc interval 385 ms. Overall has improved rate from his initial tracing at 8:56 AM where he was 110 bpm. Diagnostic Imaging Diagonstic Imaging: Xray Plain Films/CT/US/NM/MRI: chest Comments NAME: MERNA STEINER V MED REC#: [id number] PT STATUS: REG ER : 1945 PHYSICIAN: KATHLEEN LEAL MD ADMIT DATE: 08/09/23/ER FS Draft Date of Exam:08/09/23 CHEST 1 VIEW AP/PA ONLY Indication: Palpitations. Time of Exam: 900 a.m. Correlation is made with prior chest from 11/06/2020. Heart is enlarged. Cardiac pacemaker is in place. No infiltrates are seen. There is no effusion or pneumothorax. IMPRESSION: No acute cardiopulmonary process is detected. Dictated on workstation # [id number] Dict: 08/09/23917 Trans: 08/09/23918 [facility] [id number] Interpreted by: PIERRE SHIPLEY MD Electronically signed by: Reviewed: Reviewed by Me Diagonstic Imaging: CT Plain Films/CT/US/NM/MRI: chest Comments NAME: MERNA STEINER V [facility] REC#: [id number] PT STATUS: REG ER : 1945 PHYSICIAN: KATHLEEN LEAL MD ADMIT DATE: 08/09/23/ER FS Draft Date of Exam:08/09/23 CT ANGIO CHEST W PROCEDURE: CT angiography of the chest with contrast. TECHNIQUE: Multiple contiguous axial images were obtained through the chest after uneventful bolus administration of intravenous contrast. 3D reconstructed CTA MIP acquisitions were also performed. Auto Exposure Controls were utilized during the CT exam to meet ALARA standards for radiation dose reduction. INDICATION: Elevated D-dimer. History of atrial fibrillation. COMPARISON: None. FINDINGS: No abnormal intraluminal filling defect is seen within the pulmonary arteries to the 1st subsegmental division. Main pulmonary arterial trunk is prominent as it measures 3.4 cm in diameter. Thoracic aorta is suboptimally opacified. There is mild diffuse calcified and noncalcified aortic atherosclerosis but, by NASCET criteria, there is no focal significant stenosis. There is no evidence of dissection or aneurysm. Heart is mildly enlarged. Small pericardial effusion is noted. No pathologically enlarged or morphologically abnormal adenopathy is seen within the mediastinum, nacho, or axilla. Lungs are clear. There is no focal consolidation, large effusion, or pneumothorax. 5 mm micronodule is noted within the anterior margins of the right upper lobe (image 60, series 8). 4 mm micronodule is also present within the anterolateral margins of the left upper lobe (image 47, series 8). Osseous structures show no acute abnormalities. No lytic or blastic bony lesions are identified. Degenerative changes of the thoracic spine are noted. Included portions of the upper abdomen are unremarkable as well. IMPRESSION: 1. No acute vascular abnormality is seen within the chest. 2. Mild cardiomegaly. 3. Mild enlargement of the main pulmonary arterial trunk. Please correlate for underlying pulmonary hypertension. 4. Small bilateral upper lobe pulmonary micronodules. Followup with repeat CT chest in 1 year is advised to assess for stability. Dictated on workstation # [id number] Dict: 08/09/23 1019 Trans: 08/09/23 1027 [id number] Interpreted by: MANOLO PEREZ MD Electronically signed by: Reviewed: Reviewed by Me Departure Impression Primary Impression: Atrial fibrillation with rapid ventricular response Additional Impressions: Hypomagnesemia Elevated d-dimer Disposition: 01 HOME, SELF-CARE Condition: Improved Departure-Patient Inst. Decision time for Depature: 11:16 Referrals: ANALI OLIVAS MD (PCP/Family) Primary Care Physician Patient Instructions: Atrial Fibrillation and Atrial Flutter ED, Low Magnesium Level, Pulmonary nodule, Incidental Findings Add. Discharge Instructions: Take magnesium supplement to help raise your Magnesium levels. Take Eliquis to thin your blood with the recurrent atrial fibrillation. Check back with Dr. Hsu about the recurrent atrial fibrillation and whether he wants you to take the Eliquis or if the Baby aspirin is enough medicine to thin your blood. While taking the Eliquis you should stop your baby aspirin. Your CT scan had shown some small pulmonary nodules on the upper lobes and the radiologist recommends you get a repeat CT scan in 1 year to verify that they are not changing. All discharge instructions reviewed with patient and/or family. Voiced understanding. Scripts Magnesium Oxide (Magnesium Oxide) 400 Mg (241.3 Mg Magnesium) Tablet 400 MG PO BID for Low Magnesium for 15 Days, #30 TAB 0 Refills Prov: KATHLEEN LEAL MD 08/09/23 KATHLEEN LEAL MD Aug 09, 2023 09:04
[2023-08-09 09:14] LABS: BASOPHILS % (AUTO) 1 % (0-10); EOSINOPHILS # (AUTO) 0.1 10^3/uL (0.0-0.3); EOSINOPHILS % (AUTO) 2 % (0-10); HEMATOCRIT 35 % (40-54); HEMOGLOBIN 11.2 g/dL (13.3-17.7); LYMPHOCYTES # (AUTO) 2.2 10^3/uL (1.0-4.0); LYMPHOCYTES % (AUTO) 38 % (12-44); MEAN CORPUSCULAR HEMOGLOBIN 30 pg (25-34); MEAN CORPUSCULAR HGB CONC 32 g/dL (32-36); MEAN CORPUSCULAR VOLUME 94 fL (80-99); MEAN PLATELET VOLUME 9.7 fL (9.0-12.2); MONOCYTES # (AUTO) 0.4 10^3/uL (0.0-1.0); MONOCYTES % (AUTO) 7 % (0-12); NEUTROPHILS % (AUTO) 52 % (42-75); PLATELET COUNT 143 10^3/uL (130-400); WHITE BLOOD COUNT 5.8 10^3/uL (4.3-11.0)
--- NOTE | 2023-08-09 09:20 | Diagnostic Imaging Report ---
Indication: Palpitations. Time of Exam: 900 a.m. Correlation is made with prior chest from 11/06/2020. Heart is enlarged. Cardiac pacemaker is in place. No infiltrates are seen. There is no effusion or pneumothorax. IMPRESSION: No acute cardiopulmonary process is detected. Dictated by: Dictated on workstation # [id number]
[2023-08-09] MEDS ORDERED: APIXABAN 5 MG TABLET PO STA (09:26)
[2023-08-09 09:35] LABS: FIBRIN DEGRADATION PRODUCTS 2.06 UG/ML (0.00-0.49); PROTHROMBIN TIME PATIENT 13.3 SEC (12.2-14.7)
[2023-08-09 09:36] LABS: ALANINE AMINOTRANSFERASE 8 U/L (0-55); ALBUMIN 3.7 GM/DL (3.2-4.5); ALKALINE PHOSPHATASE 133 U/L (40-136); BUN/CREATININE RATIO 9; CALCIUM 8.7 MG/DL (8.5-10.1); CARBON DIOXIDE 23 MMOL/L (21-32); CHLORIDE 107 MMOL/L (98-107); CREATININE SERUM 1.47 MG/DL (0.60-1.30); GFR ESTIMATED 48; GLUCOSE 153 MG/DL (70-105); LIPASE 31 U/L (8-78); MAGNESIUM 1.3 MG/DL (1.6-2.4); POTASSIUM 3.9 MMOL/L (3.6-5.0); SODIUM 140 MMOL/L (135-145); TOTAL PROTEIN 6.1 GM/DL (6.4-8.2)
[2023-08-09] MEDS ORDERED: MAGNESIUM 1 GM/100 ML IVPB 100 ML IV STA (09:41)
[2023-08-09] MEDS ORDERED: NS 100 ML (IVPB) BAG IV ONE (10:00)
[2023-08-09] MEDS ORDERED: HOLD METFORMIN - RECEIVED CONTRAST 20 ML VIAL IV SCH (10:00)
[2023-08-09] MEDS ORDERED: IOHEXOL 350 MG/ML 100 ML (OMNIPAQUE 350) VIAL IV ONE (10:00)
--- NOTE | 2023-08-09 10:28 | Diagnostic Imaging Report ---
PROCEDURE: CT angiography of the chest with contrast. TECHNIQUE: Multiple contiguous axial images were obtained through the chest after uneventful bolus administration of intravenous contrast. 3D reconstructed CTA MIP acquisitions were also performed. Auto Exposure Controls were utilized during the CT exam to meet ALARA standards for radiation dose reduction. INDICATION: Elevated D-dimer. History of atrial fibrillation. COMPARISON: None. FINDINGS: No abnormal intraluminal filling defect is seen within the pulmonary arteries to the 1st subsegmental division. Main pulmonary arterial trunk is prominent as it measures 3.4 cm in diameter. Thoracic aorta is suboptimally opacified. There is mild diffuse calcified and noncalcified aortic atherosclerosis but, by NASCET criteria, there is no focal significant stenosis. There is no evidence of dissection or aneurysm. Heart is mildly enlarged. Small pericardial effusion is noted. No pathologically enlarged or morphologically abnormal adenopathy is seen within the mediastinum, nacho, or axilla. Lungs are clear. There is no focal consolidation, large effusion, or pneumothorax. 5 mm micronodule is noted within the anterior margins of the right upper lobe (image 60, series 8). 4 mm micronodule is also present within the anterolateral margins of the left upper lobe (image 47, series 8). Osseous structures show no acute abnormalities. No lytic or blastic bony lesions are identified. Degenerative changes of the thoracic spine are noted. Included portions of the upper abdomen are unremarkable as well. IMPRESSION: 1. No acute vascular abnormality is seen within the chest. 2. Mild cardiomegaly. 3. Mild enlargement of the main pulmonary arterial trunk. Please correlate for underlying pulmonary hypertension. 4. Small bilateral upper lobe pulmonary micronodules. Followup with repeat CT chest in 1 year is advised to assess for stability. Dictated by: Dictated on workstation # [id number]
[2023-08-09] MEDS ORDERED: MGX400T PO (11:18)
[2023-08-09] MEDS ORDERED: APIX5TAB PO (11:18)
[2023-08-09 11:20] VITALS: BP 115/64
== END 2023-08-09 11:21 | disposition home or self-care (01) ==
LOC: EDUNIT# 08:46 → ER FS 08:46
DX: I48.91 Unspecified atrial fibrillation (principal); E83.42 Hypomagnesemia; Z95.5 Presence of coronary angioplasty implant and graft; Z95.0 Presence of cardiac pacemaker
CPT/HCPCS: 36415; 71045; 71275; 80053; 83690; 83735; 83880; 84484; 85025; 85379; 85610; 85730; 93005; 93041; Q9967